=== PATIENT | female | born 1935 | race Hispanic/Latino ===

== ENCOUNTER 2016-12-16 20:07 | Inpatient (IN) | payer MEDICARE ==
[~2016-12-16] VITALS: Ht 144.8 cm; Wt 70.2 kg
[~2016-12-16 20:07] MED LIST: INSU100C6 SQ; INSU100I SQ; LIP40 PO; LISI20TA PO; METO50TA PO
[2016-12-16 20:11] VITALS: BP 212/70; PULSE 86; RESP 16; O2SAT 97
[2016-12-16 20:36] VITALS: BP 177/66; PULSE 82; RESP 20; O2SAT 98
[2016-12-16 20:44] LABS: BASOPHILS % (AUTO) 0.4 % (0-3); EOSINOPHILS % (AUTO) 0.4 % (0-5); MONOCYTES % (AUTO) 7.2 % (4-12); Mean Corpuscular Hemoglobin 28.5 pg (27.0-35.0); Mean Corpuscular Volume 84.7 fL (81-100); NEUTROPHILS % (AUTO) 77.2 % (40-74); Platelet Count 164 bil/L (150-400)
--- NOTE | 2016-12-16 20:55 | DRSVH ---
PROCEDURE: X-RAY CHEST ONE VIEW, PORTABLE ([id number]) INDICATIONS: chest pain TECHNIQUE: One view of the chest was acquired. COMPARISON: [facility], , CHEST 2VW, 05/19/2011, 11:50. FINDINGS: Surgical changes and devices: Post CABG procedure. Lungs and pleura: No pleural effusions or pneumothorax. Lungs are clear. Mediastinum: Mediastinal contours appear normal. Heart size is normal. Bones and chest wall: No suspicious bony lesions. Overlying soft tissues appear unremarkable. IMPRESSION: No acute cardiopulmonary disease process. Dictated by: Mercy Danielson MD, PhD on 12/16/2016 at 20:53 Approved by: Mercy Danielson MD, PhD on 12/16/2016 at 20:53
[2016-12-16 21:03] LABS: TROPONIN T < 0.010 ug/L (0.0-0.011)
[2016-12-16 21:13] LABS: Magnesium 1.8 mg/dL (1.6-2.6)
--- NOTE | 2016-12-16 21:16 | DRSVH ---
PROCEDURE: CT BRAIN WITHOUT CONTRAST ([id number]) INDICATIONS: facial droop on R TECHNIQUE: Noncontrast 4.5 mm thick angled axial sections acquired from the foramen magnum to the vertex, with c oronal reformats. COMPARISON: None. FINDINGS: Image quality: Excellent. CSF spaces: Basal cisterns are patent. No extra-axial fluid collections. The ventricles are symmet meliza in size and shape. Brain: No intracranial bleeds or masses. There is cerebral volume loss for age, with resultant vent ricular and sulcal prominence. There are periventricular and deep white matter chronic small vessel ischemic changes. Bilateral globus pallidus calcifications noted which are likely physiologic. There is intracranial internal carotid artery atherosclerosis. Pituitary fossa is prominent possibly due to empty sella syndrome. Skull and face: Calvarium and visualized facial bones appear intact, without suspicious lesions. Sinuses: Visualized sinuses and mastoids are clear. IMPRESSION: 1. No acute intracranial disease process. 2. 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 Recommend nonemergent MRI pituitary p rotocol Dictated by: Mercy Danielson MD, PhD on 12/16/2016 at 21:11 Approved by: Mercy Danielson MD, PhD on 12/16/2016 at 21:15
[2016-12-16 21:22] VITALS: BP 149/44; PULSE 84; RESP 16; O2SAT 96
--- NOTE | 2016-12-16 21:25 | ED.REPORT ---
HPI-Neurologic Deficit Date of Service Dec 16, 2016 ED Provider: Warner Payne MD Pt is a 81 year old female with a hx of HTN, DM, ID and bypass presenting to the ED complaining of facial numbness. Her son reports that the pt was having sharp epigastric pain with belching yesterday, and had some numbness around the left side of her mouth. She took a Nitro which relieved the pain. Today, the pain and numbness returned and is around her left eye as well. Associated symptoms include trouble swallowing onset this morning around 0900, pressure in the top of her head, and pain across her chest and shoulders. Denies hx of stroke. Denies fever, chills, SOB, wheezing, nausea, vomiting or diarrhea. Nursing Notes Stated Complaint: HARD TO SWALLOW, LF SIDE FACE NUMBNESS Chief Complaint: Neuro Symptoms/ Deficits Nursing Notes Reviewed: Yes Allergies: Coded Allergies: No Known Allergies (Verified Allergy, Unknown, 12/16/16) Scheduled Aspirin (Aspirin) 81 Mg Tablet 81 MG PO DAILY Atorvastatin-Expunged Drug, Do Not Renew! (Atorvastatin-Expunged Drug, Do Not Renew!) 40 Mg Tablet 40 MG PO HS INSULIN GLARGINE-Expunged Drug, Do Not Renew! (Lantus-Expunged Drug, Do Not Renew!) 100 Unit/1 Ml Cartridge 10 UNIT SQ AM Lisinopril (Lisinopril) 40 Mg Tablet 40 MG PO BID Metoprolol Tart-Expunged Drug, Do Not Renew! (Metoprolol Tart-Expunged Drug, Do Not Renew!) 50 Mg Tablet 50 MG PO BID Omeprazole (Omeprazole) 20 Mg Capsule. 20 MG PO QAM General Time Seen by Provider: 21:32 Chief Complaint Other (Facial numbness) Hx Obtained From: Patient, Son Arrived By: Walk-in Sudden in Onset?: No Onset Occurred: Yesterday Symptom Duration: Waxes and wanes Location: : Chest: Head Quality: Painful Severity: Current: Mild Severity: Maximum: Moderate Recent Healthcare: No recent doctor visit, No recent hospitalization Similar Sx Previous: No Past Medical History Past Medical History ID Reports: Diabetes mellitus, Hypertension Past Surgical History ID, double bypass surgery Smoking History Never Smoker Social History Alcohol Use: Denies alcohol use Drug Use: Denies drug use Ambulatory Status Independent Review of Systems Review of Systems Note: Reports trouble swallowing Constitutional: Denies: Chills, Fever Respiratory: Denies: Shortness of breath, Wheezing Cardiovascular: Reports: Chest pain GI: Denies: Diarrhea, Nausea, Vomiting Musculoskeletal: Reports: Extremity pain Neurologic: Reports: Headache, Numbness Complete sys rev & neg: except as marked. Physical Exam Initial Vital Signs Vital Signs (First) Date Time Temp Pulse Resp B/P Pulse Ox O2 Delivery O2 Flow Rate FiO2 12/16/16 20:11 37.0 86 16 212/70 97 Room Air Initial VS: Reviewed, Vital signs abnormal ENT: Mucous membranes moist, Conjunctiva normal, No scleral icterus Neck: Supple, Non-tender, Full range of motion Abdomen / GI: Soft, Non-tender, No guarding, No rebound, No distention Skin: Warm, Dry, No cyanosis Psychiatric: Mood/affect normal, Behavior normal, Normal thought content General/Constitutional: Awake, Alert, No acute distress Head / Eyes: Atraumatic, Normocephalic, PERRL, EOMI Respiratory / Chest: Breath sounds NL, Breath sounds = bilat, No respiratory distress, No rales, No rhonchi, No wheezing Cardiovascular: Heart rate NL, Regular rhythm, Heart sounds NL, Peripheral circulation NL Neurologic: Oriented X3, Speech NL, No motor deficits, No sensory deficits, CN II - XII intact, Reflexes equal bilat, Cerebellar NL Moving all 4 extremities symmetrically Lower Extremity / Pelvis / MS: Neurologic intact, Vascular intact 1+ edema left leg, no edema of right. Longstanding. Interpretation & Diagnostics Lab Results Interpretation Result Diagram: 12/16/16203912/16/162039 Test 12/16/16 00:01 12/16/16 20:36 12/16/16 20:40 Hold Purple Top Tube Received (Received) Hold Blue Top Tube Received (Received) Hold Congers Top Tube Received (Received) Hold Rodriguez Top Tube Received (Received) White Blood Count 5.6th/mm3 (3.8-10.1) Red Blood Count 4.04mil/mm3 (3.90-5.20) Hemoglobin 11.5g/dL (12.0-15.6) Hematocrit 34.2% (35.0-46.0) Mean Corpuscular Volume 84.7fL (81-100) Mean Corpuscular Hemoglobin 28.5pg (27.0-35.0) Mean Corpuscular Hemoglobin Concent 33.6% (32.0-37.0) Red Cell Distribution Width 13.6% (12.3-15.4) Platelet Count 164bil/L (150-400) Neutrophils (%) (Auto) 77.2% (40-74) Lymphocytes (%) (Auto) 14.6% (14-46) Monocytes (%) (Auto) 7.2% (4-12) Eosinophils (%) (Auto) 0.4% (0-5) Basophils (%) (Auto) 0.4% (0-3) Sodium Level 135mEq/L (134-144) Potassium Level 3.8mEq/L (3.5-5.2) Chloride Level 99mEq/L (97-108) Carbon Dioxide Level 20mmol/L (18-29) Blood Urea Nitrogen 32mg/dL (8-27) Creatinine 1.35mg/dL (0.57-1.00) Estimat Glomerular Filtration Rate 54mL/min (>59) Glucose Level 347mg/dL (60-99) Calcium Level 9.1mg/dL (8.5-10.1) Magnesium Level 1.8mg/dL (1.6-2.6) Total Bilirubin 0.7mg/dL (0.0-1.2) Aspartate Amino Transf (AST/SGOT) 24U/L (0-50) Alanine Aminotransferase (ALT/SGPT) 16U/L (0-32) Alkaline Phosphatase 153U/L (25-165) Troponin T < 0.010ug/L (0.0-0.011) Total Protein 7.0g/dL (6.4-8.4) Albumin 3.6g/dL (3.4-5.0) Lab Results Interpretation: Mild anemia, mild renal insufficiency, elevated non-fasting blood sugar ECG Interpretation ECG Interpretation: Atrial premature complex. Left atrial enlargement. Probable LVH with secondary repol abnormality. ST depression in leads 1, v5 and v6, and there is about [address] elevation in leads aVR and V1 of uncertain significance. Time: 20:26 Interpreted by: ED physician Normal ECG Interpretation: Normal rate (94), Normal sinus rhythm X-Ray Chest Interpretation Chest Xray Interpretation: IMPRESSION: No acute cardiopulmonary disease process. Dictated by: Mercy Danielson MD, PhD on 12/16/2016 at 20:53 View: Portable, 1 view Interpretation / Wet Read by: Interpret - Radiologist CT Head Interpretation IMPRESSION: 1. No acute intracranial disease process. 2. 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 Recommend nonemergent MRI pituitary protocol Dictated by: Mercy Danielson MD, PhD on 12/16/2016 at 21:11 Study: Head CT no contrast Interpretation / Wet Read by: Interpret - Radiologist Re-Eval/Medical Decision Med Decision/Clinical Course 81-year-old female with greater than 12 hours of left facial numbness and some difficulty swallowing. She presented with hypertension which partially normalized without specific treatment. Head CT scan is negative for evidence of bleeding. She does have possible empty sella syndrome, MRI recommended. She will be admitted to the hospitalist service for further evaluation. Re-Evaluation/Progress : Time of Eval: 21:38 Patient Status: Condition improved Re-Evaluation/Progress Note: Discussed plan for admission. Pt understands and agrees with plan. Consultation : Referral / Consult Name: Percy Ford MD Consulted With: Hospitalist Call Returned at: 21:47 Solar Crew Member: Will see patient, Agrees with plan, Accepts admit Counseled Regarding: Diagnosis, Lab results, Need for admission Discharge & Departure Impression: Primary Impression: Stroke CVA mechanism: unspecified Qualified Code: I63.9 - Cerebral infarction, unspecified Disposition: ADMITTED TO HOSPITAL Discharge Condition All VS Reviewed: Yes Condition: Improved Referrals: Gerardo Palacios MD (PCP) Tiburcioibmike Attestation Portions of this note were transcribed by Aury Fabian. I, Dr. Payne personally performed the history, physical exam and medical decision-making; I reviewed and confirmed the accuracy of the information in the transcribed note. Signed by: Eris Ledezma, 12/16/2016. copies to: Gerardo Palacios MD, Howard L MD Dec 16, 2016 21:25 AURY FABIAN Dec 16, 2016 21:34
[2016-12-16] MEDS ORDERED: Ondansetron 2 mg/mL 2 mL Inj IVPUSH PRN (22:30)
[2016-12-16] MEDS ORDERED: Polyethylene Glycol (PEG) 17 Gm Powder PO PRN (22:30)
[2016-12-16 22:35] VITALS: BP 161/46; PULSE 79; RESP 16; O2SAT 96
[2016-12-16 22:52] VITALS: BP 175/60; PULSE 88; RESP 18; O2SAT 97
--- NOTE | 2016-12-16 22:59 | PCM.HPMED ---
Subjective Date of Service Dec 16, 2016 Primary Provider: Admitting Physician: Percy Ford MD Primary Care Physician: Gerardo Palacios MD Attending Physician: Percy Ford MD Admit Status: From the Emergency Department Chief Complaint: Facial numbness, neck pain History of Present Illness: Ms. Desir is a 81 year old female with h/o HTN, DM on insulin, and previous ID s /p 3 vessel CABG who presented to the ED on 12/16/16 with complaints of facial numbness and neck pain. She states she has had intermittent facial numbness since her diagnosis of diabetes but this neck pain is new in onset. She describes the neck pain as an acidic heartburn in her throat with some difficulty swallowing. Patient also attests to some epigastric/substernal pain on 12/12/16 that was relieved by nitro but has now returned and is similar in nature. She denies fevers, chills, night sweats, blurry vision, SOB, nausea, vomiting, unilateral weakness or slurring speech. Review of Systems: Comprehensive ROS was done and otherwise negative except as noted above Allergies Coded Allergies: No Known Allergies (Verified Allergy, Unknown, 12/16/16) Home Medications Aspirin 81mg PO daily Omeprazole 20mg PO daily Atorvastatin 40 Mg Tablet 40 MG PO HS INSULIN GLARGINE 100 Unit/1 Ml Cartridge 10 UNIT SQ AM Insulin ASPART 3 Ml Syringe 5 U SQ TIDWM Lisinopril 20 Mg Tablet 20 MG PO HS Metoprolol Tartrate 50 Mg Tablet 50 MG PO BID PMH Diabetes mellitus Type 2, insulin using Hypertension CAD GERD Surgical History 3 Vessel CABG 2011 Family History non-contributory Social History Hx Alcohol Use: No Hx Substance Use: No Hx Tobacco Use: No Smoking Status: Never Smoker Living Arrangement: with Family Exam Vital Signs Vital Sign - Last Date Time Temp Pulse Resp B/P Pulse Ox O2 Delivery O2 Flow Rate FiO2 12/16/16 22:35 79 16 161/46 96 Room Air 12/16/16 20:11 37.0 Exam General: Well-appearing female who appears stated age, in no acute distress HEENT: NCAT, PERRLA, EOMI. Moist mucus membranes. Anicteric sclera. Neck: Supple, no JVD or thyromegaly. CV: RRR, normal S1+S2. No murmurs rubs or gallops appreciated. Pulmonary: Lungs clear to auscultation bilaterally no wheezes/rales/rhonchi Abd: Soft, nontender, nondistended. Bowel sounds throughout. No guarding/ rebound. Extremities: Varicosities with mild edema of the left lower extremity. No cyanosis or clubbing. Neuro: Alert and oriented x3. CN II-XII grossly intact. 5/5 UE & LE muscle strength. No focal deficits. Psych: Normal mood + affect Lab and Diagnostics Result Diagram: 12/16/16203912/16/162039 12-lead ECG ED read of EKG: Atrial premature complex. Left atrial enlargement. Probable LVH with secondary repol abnormality. ST depression in leads 1, v5 and v6, and there is about [address] elevation in leads aVR and V1 of uncertain significance. Cardiac Echo Impressions Echocardiogram May 2016 Left ventricular wall thickness is mildly increased. Left ventricular systolic function is normal without focal wall motion abnormalities. Ejection fraction is estimated to be 60-65%. Assessment diastolic parameters indicates a relaxation abnormality of the left ventricle, consistent with normal filling pressures. The right ventricle is normal in size and function. The left atrium is moderately dilated. Right atrium is normal in size. There is mild mitral regurgitation. There is no significant valvular heart disease. The aortic root is normal in size. No significant changes from August 2012. Assessment & Plan Ms. Desir is a 81 year old female with h/o HTN, DM on insulin, and previous ID s /p 3 vessel CABG who presented to the ED on 12/16/16 complaints of facial numbness and neck pain admitted for observation and stroke protocol. Possible TIA, present on admission. Acute. Ongoing. - Pt reported worsening symptoms that are now resolving - Noncon CT negative for acute processes but recommended MRI pituitary protocol for empty sella evaluation. - Symptoms have resolved but ABCD2 score reveals moderate risk for stroke - MRI stroke protocol ordered - Recent Echo 05/2016 as above - ST eval ordered - Monitor on telemetry - Continue Atorvastatin 40mg at night - Continue Aspirin 81mg daily Abnormal EKG, present on admission. Acute. Ongoing. - Compared to past EKG, EKG done in ER showed slight elevation of ST segments in aVR and V1 - Possibility of abnormal ACS presentation (diabetic, female) - Repeat EKG - Initial troponin negative, repeat x2 - Consider Cardiology consult (outpatient jewel bearing turner is Dr. Garza), however stress test and echo in 05/2016 were evaluated as low risk Hypertension, present on admission. Chronic. - Patient's blood pressure was over 200 systolic on admission, has since decreased - Hold home lisinopril 20 mg at night, metoprolol tartrate 50 mg twice a day for permissive hypertension - Consider restarting above meds after 24 hours Diabetes mellitus type II insulin using, present on admission. Chronic. - Glucose in the ER was 347 - A1c ordered - Continue glargine 10 units SQ AM - Low dose correctional scale ordered Hyperlipidemia, present on admission. Chronic. - Lipid panel ordered - Continue atorvastatin 40 mg at night GERD, present on admission. Chronic. - Continue Omeprazole 20mg daily Acetaminophen as needed for mild pain, headache, fever. Bowel regimen as needed. Zofran for nausea as needed. Subcutaneous heparin on board. SCDs in place. Patient Status: Patient was admitted for observation as likely length of stay < 2 midnights for severity of presenting symptoms, medical work up, and overall treatment plan. VTE Prophylaxis: Sub-Q Heparin (Unfractionated) VTE Mechanical Devices: Intermittant Pneumatic CD Resuscitation Status: CPR: Attempt Resuscitation Attending Statement The patient was seen and examined together with Dr. Elliott on 12/16 and I agree with the history, exam and plan as outlined in the note above. copies to: Gerardo Palacios MD, Jeffery S DO Dec 16, 2016 22:59 Percy Ford MD Dec 17, 2016 00:49
[2016-12-16] MEDS ORDERED: OMEP20CA11 PO (23:49)
[2016-12-16] MEDS ORDERED: ASPI-973 PO (23:49)
[2016-12-16] MEDS ORDERED: LISI40TA PO (23:49)
[2016-12-17] VITALS (7 sets, daily range): BP systolic 160–201; BP diastolic 65–78; PULSE 66–92; RESP 16–20; O2SAT 97–98
[2016-12-17] MEDS ORDERED: Glucose 40% Oral Gel 15 Gm Tube PO PRN
--- NOTE | 2016-12-17 00:53 | NUR ---
Admit Pt arrived on the floor. Denies chest pain, sob, n/v. Reports of having acid reflux. Will administer Maalox. Neuro vs noted no deficits. Alert and oriented, no facial droop or tongue deviation. No slurring of speech observed. Bilateral equal manager china, and lower extremities appropriate for age. JIN. Swallow screen done, and pt has been put on Pureed Honey Thick diet until evaluated by speech therapy. CVA Booklet provided, explained s/sx of stroke and when to call 911. Continuing to monitor.
[2016-12-17] MEDS: Insulin LISPRO 300 Unit/3 mL Inj SUBQ SCH ×5 (01:28→21:26)
[2016-12-17] MEDS: Alum-Mag Hydrox-Simeth 30 mL Suspension PO PRN ×2 (01:30→08:26)
[2016-12-17] MEDS: Pantoprazole 40 mg ER24 Tablet PO SCH (06:20)
[2016-12-17 06:31] LABS: BASOPHILS % (AUTO) 0.2 % (0-3); EOSINOPHILS % (AUTO) 1.1 % (0-5); MONOCYTES % (AUTO) 9.4 % (4-12); Mean Corpuscular Hemoglobin 28.4 pg (27.0-35.0); Mean Corpuscular Volume 84.8 fL (81-100); NEUTROPHILS % (AUTO) 72.7 % (40-74); Platelet Count 132 bil/L (150-400)
[2016-12-17] MEDS: Insulin GLARgine 100 Unit/mL Syringe SUBQ SCH (08:28)
--- NOTE | 2016-12-17 09:42 | NUR ---
Case Management: CONTEH explained and given to pt and daughter. Inés TOLEDO RN
--- NOTE | 2016-12-17 09:58 | NUR ---
Social Work: Initial Assessment Data: See initial assessment. Patient is a 81 year old female who was admitted on 12/16/16 for stroke & hypertension per H&P. Patient's insurance is Medicare. PCP is Dr. Gerardo Palacios. SW met with patient to discuss discharge planning. SW role explained. Patient is alert & oriented. EMR reviewed. Information was obtained from daughter Diane who was at bedside. Patient resides with her nalmcu-hl-dck Mariza in a 2 story home with 5 steps at entrance. Patient only uses the 1st floor of home and bathroom, kitchen, & bedroom are located there. Patient is I with ADLs but has DME available in home if needed. Diane denies patient having a DPOA but states that patient has completed AD. Patient does not have any terminologist insurance or VA benefits. Patient has not received any home health services in the past. Patient has received inpatient rehab in [place] but patient and daughter where unable to remember the name of facility. Upon discharge, transportation will be provided by family. SW provided a discharge planning checklist booklet to patient and encouraged to call with any questions. Phone number provided. SW will continue to follow. Assessment: Home likely with no needs. Plan: Pt to likely discharge home when medically stable. No needs anticipated at this time. SW will continue to follow for needs. ANGEL Ware Addendum: 12/17/16 at 1012 by CHITRA BRAVO SS Amended: Links added.
[2016-12-17] MEDS ORDERED: Diphen-Lido-Mylanta 1:1:1 Susp 15 mL Syringe PO PRN (10:30)
[2016-12-17] MEDS ORDERED: Lisinopril 40 Tablet PO SCH (10:30)
--- NOTE | 2016-12-17 12:02 | NUR ---
Evaluation completed. Please go to "Notes" then click on "Assessments and Notes" (bottom left corner of screen). Then select appropriate discipline tab on top of screen.
--- NOTE | 2016-12-17 15:46 | NUR ---
Evaluation completed. Please go to "Notes" then click on "Assessments and Notes" (bottom left corner of screen). Then select appropriate discipline tab on top of screen.
--- NOTE | 2016-12-17 16:21 | DRSVH ---
PROCEDURE: MRI BRAIN WITHOUT CONTRAST ([id number]) INDICATIONS: FACIAL NUMBNESS TECHNIQUE: Non-contrast axial T1 spin echo, axial T2 fast spin echo, sagittal and axial FLAIR, coronal T2 fast s pin echo, axial gradient echo, axial diffusion and ADC through the brain. COMPARISON: [facility], CT, CT BRAIN WO CON, 12/16/2016, 20:43. FINDINGS: Image quality: Excellent. CSF spaces: Ventricles appear symmetric in size and shape. Basal cisterns are patent. No extra-axi al fluid collections. Brain: No intracranial bleeds or mass effects. There is mild cerebral volume loss for age. There a re moderate periventricular and deep white matter chronic small vessel ischemic changes. Brainstem a ppears normal. Diffusion-weighted images show no acute ischemic insults. No chronic ischemic insult s. Note is made of empty sella. Bilateral dystrophic calcification in globus pallidus. Normal intrav ascular flow voids are present. Skull and face: Calvarial bone marrow is normal in signal. Orbits are normal. Sinuses: Sinuses and mastoids are clear. IMPRESSION: 1. No acute intracranial abnormalities. 2. Cerebral volume loss and chronic microvascular ischemic changes. Dictated by: Areli Rubalcava M.D. on 12/17/2016 at 16:15 Approved by: Areli Rubalcava M.D. on 12/17/2016 at 16:20
--- NOTE | 2016-12-17 16:28 | DRSVH ---
PROCEDURE: MRA ANGIOGRAM HEAD WITHOUT CONTRAST ([id number]) INDICATIONS: FACIAL NUMBNESS TECHNIQUE: Noncontrast axial 3-D [id number] MR angiogram, with 3-dimensional maximum intensity projection (M IP) reformats of the internal carotid arteries and posterior circulation then performed. COMPARISON: [facility], MR, MR BRAIN WO CON, 12/17/2016, 15:34. FINDINGS: Image quality: Excellent. Anterior circulation: Intracranial internal carotid arteries are patent. There is severe narrowing i n the cavernous segment of the internal carotid arteries bilaterally (>90%). The flow within the price red anterior cerebral arteries is normal and symmetric. The flow within the middle cerebral arteries is normal and symmetric. The anterior communicating artery is seen. No stenoses, occlusions, or an eurysms. Posterior circulation: The left vertebral artery is dominant. The right vertebral artery is small, wh ich is most likely congenital. There is diffuse irregularity with mild stenosis in left vertebral art yeimi (~30%). Normal appearing basilar artery. The flow within the posterior cerebral arteries is norm al and symmetric. No stenoses, occlusions, or aneurysms. IMPRESSION: 1. 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 2. Dominant left vertebral artery with mild stenosis. 3. 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 Dictated by: Areli Rubalcava M.D. on 12/17/2016 at 16:20 Approved by: Areli Rubalcava M.D. on 12/17/2016 at 16:27
[2016-12-17] MEDS ORDERED: Heparin 25K Unit/500mL 0.45 NS 25,000 UNIT in IV Premix 1 EACH IV ONE (17:35)
[2016-12-17] MEDS ORDERED: Heparin 5,000 Unit/mL Inj IVPUSH ONE (17:35)
--- NOTE | 2016-12-17 18:10 | NUR ---
cardiac heparin drip Cardiac heparin drip started at 800un 16ml/hr with 4500 bolus per MD order. Double verified by Herminia Patrick
--- NOTE | 2016-12-17 18:11 | NUR ---
Tooth pain pt c/o 10/03 left tooth pain that was unrelieved by tylenol. MD notified. Magic mouth wash administered and ABX for tooth infection. Pt stated that pain decreased to 10
--- NOTE | 2016-12-17 19:13 | PCM.PNMED ---
Subjective Date of Service Dec 17, 2016 Subjective Patient was seen and examined at bedside today. Patient denies any chest pain, shortness of breath, nausea, vomiting, diarrhea. Patient only complains of tooth pain. Later in the afternoon it was noted that the patient's troponins continued to increase and an EKG was done and showed that the patient was having an acute ischemic event in the anterolateral leads. Patient throughout this entire time still denied any chest pain shortness of breath, nausea, vomiting, diarrhea. Overnight events: None Exam Vital Signs Vital Sign - Last Date Time Temp Pulse Resp B/P Pulse Ox O2 Delivery O2 Flow Rate FiO2 12/17/16 16:29 36.4 66 160/70 98 Room Air 12/17/16 10:14 20 Exam Physical Exam: GEN: Patient was awake, alert, responding appropriately to questions HEENT: Pupils equal round and reactive to light, extraocular eye muscles intact , Neck soft supple, trachea midline, nomocephalic/atraumatic, poor dentition left anterior molar black, right multiple molars with black spots CV: +S1/S2, regular rate and rhythm, no murmurs auscultated Respiratory: CTAB, no wheezes, rales, rhonchi GI: +bowel sounds x4, soft, compressible, nontender to palpation EXT: no clubbing, cyanosis, edema Neuro: Cranial nerves II-XII grossly intact Psych: mood and affect were appropriate IVs and Medications Medications Reviewed: Medications were reviewed in detail Lab and Diagnostics Result Diagram: 12/17/16 0530 12/17/16 0530 12-lead ECG ED read of EKG: Atrial premature complex. Left atrial enlargement. Probable LVH with secondary repol abnormality. ST depression in leads 1, v5 and v6, and there is about [address] elevation in leads aVR and V1 of uncertain significance. Cardiac Echo Impressions Echocardiogram May 2016 Left ventricular wall thickness is mildly increased. Left ventricular systolic function is normal without focal wall motion abnormalities. Ejection fraction is estimated to be 60-65%. Assessment diastolic parameters indicates a relaxation abnormality of the left ventricle, consistent with normal filling pressures. The right ventricle is normal in size and function. The left atrium is moderately dilated. Right atrium is normal in size. There is mild mitral regurgitation. There is no significant valvular heart disease. The aortic root is normal in size. No significant changes from August 2012. Assessment & Plan Ms. Desir is a 81 year old female with h/o HTN, DM on insulin, and previous [place] s /p 3 vessel CABG who presented to the ED on 12/16/16 complaints of facial numbness and neck pain admitted for observation and stroke protocol. NSTEMI, potentially present on admission, active -Repeat EKG shows ischemic changes in the anterolateral leads with inverted T waves -Heparin drip started -Positive troponins 2 -Repeat echo -Nothing by mouth after midnight for cath tomorrow -Cardiology consulted (Dr. Mancuso) Tooth decay, present on admission, active -Start Clindamycin 4 times a day -Florastor twice a day -Magic mouthwash when necessary pain Possible TIA, present on admission. Acute. Ongoing. - Pt reported worsening symptoms that are now resolving - Noncon CT negative for acute processes but recommended MRI pituitary protocol for empty sella evaluation. - Symptoms have resolved but ABCD2 score reveals moderate risk for stroke - MRI stroke protocol ordered - Recent Echo 05/2016 as above - ST eval ordered - Monitor on telemetry - Continue Atorvastatin 40mg at night - Continue Aspirin 81mg daily Hypertension, present on admission. Chronic. 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 - Glucose in the ER was 347 - A1c pending - Continue glargine 10 units SQ AM - Low dose correctional scale ordered Hyperlipidemia, present on admission. Chronic. - Lipid panel shows mild hypertriglyceridemia - Continue atorvastatin 40 mg at night GERD, present on admission. Chronic. - Continue Omeprazole 20mg daily Acetaminophen as needed for mild pain, headache, fever. Bowel regimen as needed. Zofran for nausea as needed. Subcutaneous heparin on board. SCDs in place. Outpatient medical office assistant: Dr. Garza Disposition: The patient was admitted for what was presumably a TIA however after further history this seems less likely. The patient does complain of tooth decay and has stated that she has had mouth pain and has weakness and pain every time she walks in that left side. The tube was examined today and is obviously dying of this almost completely black. Upon further history the patient states that for the last day or 2 she has had some pain in her neck and bilateral shoulders which seems to have been resolving with the use of sublingual nitroglycerin. The patient states that she only used one or 2 of them but then told her daughters at one point she "just did not feel right". Patient had one troponin that was negative however the following 2 troponins were positive and a repeat EKG was done showing the patient had anterolateral ischemic changes with significant inverted T waves which was worse from the admitting EKG. Dr. Mancuso was called and ordered an echo to be done on this patient, heparin drip, and the patient to be made nothing by mouth she will take her to the film laboratory technician tomorrow morning. The patient is currently stable and in no pain. VTE Prophylaxis: Sub-Q Heparin (Unfractionated) VTE Mechanical Devices: Intermittant Pneumatic CD Resuscitation Status: CPR: Attempt Resuscitation Yesy Radford DO Dec 17, 2016 19:13
[2016-12-18] VITALS (14 sets, daily range): BP systolic 126–173; BP diastolic 49–75; PULSE 64–75; RESP 12–18; O2SAT 97–99
[2016-12-18] MEDS: Pantoprazole 40 mg ER24 Tablet PO SCH (05:28)
[2016-12-18 06:29] LABS: BASOPHILS % (AUTO) 0.5 % (0-3); EOSINOPHILS % (AUTO) 1.5 % (0-5); NEUTROPHILS % (AUTO) 63.7 % (40-74); Platelet Count 137 bil/L (150-400)
--- NOTE | 2016-12-18 06:42 | NUR ---
Activity Kept bedrest this shift with exception to getting up to BSC. Patient reports that jaw and shoulder pain are brought on with activity. No cardiac complaints noted this shift. Tele remains SR. Currently resting without any complaints.
[2016-12-18] MEDS: Insulin GLARgine 100 Unit/mL Syringe SUBQ SCH (08:11)
[2016-12-18] MEDS: Insulin LISPRO 300 Unit/3 mL Inj SUBQ SCH ×4 (08:12→21:49)
[2016-12-18] MEDS ORDERED: HYDR25TA4 PO (08:17)
[2016-12-18] MEDS ORDERED: Heparin 25K Unit/500mL 0.45 NS 25,000 UNIT in IV Premix 1 EACH IV SCH ×2 (13:10→22:00)
[2016-12-18] MEDS ORDERED: Heparin Protocol Boluses IVPUSH PRN ×2 (13:15→22:00)
--- NOTE | 2016-12-18 13:30 | NUR ---
OFF UNIT/tfr Pt left unit to shift lab technician with heparin drip running. Pt was then transferred to PCC room 2004. Shift report given to Eva Jones RN.
[2016-12-18] MEDS ORDERED: Heparin 10,000 Unit/1,000 mL NS Premix IV ONE (13:50)
[2016-12-18] MEDS ORDERED: Heparin 1,000 Units/500 mL NS Premix IV ONE (13:50)
[2016-12-18] MEDS ORDERED: Nitroglycerin 50,000 mcg/250 mL D5W Premix IV ONE (13:51)
[2016-12-18] MEDS ORDERED: Heparin 1,000 Unit/mL 10 mL Inj ONE (13:51)
[2016-12-18] MEDS ORDERED: fentaNYL-PF 50 mCg/mL 2 mL Inj ONE (14:30)
--- NOTE | 2016-12-18 17:13 | PCM.PNMED ---
Subjective Date of Service Dec 18, 2016 Subjective Denies any new issues/complaints. No chest pain/SOB Exam Vital Signs Vital Sign - Last Date Time Temp Pulse Resp B/P Pulse Ox O2 Delivery O2 Flow Rate FiO2 12/18/16 16:30 68 16 139/59 97 Room Air 12/18/16 10:19 36.6 Intake and Output 12/17/16 12/17/16 12/18/16 Cumulative From/Thru 15:00 23:00 07:00 12/16/16 20:11 - 12/17/16 22:10 Intake Total 118 ml 700 ml 818 ml Output Total 800 ml 800 ml 1600 ml Balance -682 ml -100 ml -782 ml Intake Oral 118 ml 700 ml 818 ml IV Total 0 ml 0 ml Output Urine Total 800 ml 800 ml 1600 ml # Bowel Movements 0 0 General: Alert, Cooperative, No Acute Distress Head: Normal Eyes: Scleral Anicteric Nose: Mucous Membr Moist/[place] Mouth: Mucous Membr Moist/[place] Neck: Supple Chest & Lungs: Chest Wall Normal, Clear to auscultation & percussion Cardiovascular: Regular Rate/Rhythm Abdomen: Non-tender, Non-distended, Normoactive bowel tones, Soft Extremities: No cyanosis/clubbing/edma bilat Neurological: Grossly Neurologically Intact, Normal Speech IVs and Medications Medications Reviewed: Medications were reviewed in detail Lab and Diagnostics Result Diagram: 12/18/16 0540 12/18/16 0540 12-lead ECG ED read of EKG: Atrial premature complex. Left atrial enlargement. Probable LVH with secondary repol abnormality. ST depression in leads 1, v5 and v6, and there is about [address] elevation in leads aVR and V1 of uncertain significance. Cardiac Echo Impressions Echocardiogram May 2016 Left ventricular wall thickness is mildly increased. Left ventricular systolic function is normal without focal wall motion abnormalities. Ejection fraction is estimated to be 60-65%. Assessment diastolic parameters indicates a relaxation abnormality of the left ventricle, consistent with normal filling pressures. The right ventricle is normal in size and function. The left atrium is moderately dilated. Right atrium is normal in size. There is mild mitral regurgitation. There is no significant valvular heart disease. The aortic root is normal in size. No significant changes from August 2012. Assessment & Plan 81 year old female with h/o HTN, DM on insulin, and previous [place] s/p 3 vessel CABG who presented to the ED on 12/16/16 complaints of facial numbness and neck pain admitted for observation and stroke protocol. # Acute NSTEMI, potentially present on admission, active - Repeat EKG shows ischemic changes in the anterolateral leads with inverted T waves - Heparin drip - Positive Troponin - Followup pending echo - Cardiology consulted. Will followup with recs # Tooth decay, present on admission, active - Continue Clindamycin 4 times a day - Florastor twice a day - Magic mouthwash when necessary pain - Followup as outpatient # Possible TIA, present on admission. Acute. Ongoing. - Pt reported worsening symptoms that are now resolving - Noncon CT negative for acute processes but recommended MRI pituitary protocol for empty sella evaluation. 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 Walker) who feels finding likely artifact - Further followup as outpatient # Hypertension, present on admission. Chronic. 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 - Glucose in the ER was 347 - HgA1C 9.9 - Continue glargine 10 units SQ AM - Low dose correctional scale ordered # Hyperlipidemia, present on admission. Chronic. - Lipid panel shows mild hypertriglyceridemia - Continue atorvastatin 40 mg at night # GERD, present on admission. Chronic. - Continue Omeprazole 20mg daily # CKD. - Cr seems at baseline. - Followup Dispo: 1-2 day VTE Prophylaxis: Sub-Q Heparin (Unfractionated) VTE Mechanical Devices: Intermittant Pneumatic CD Resuscitation Status: CPR: Attempt Resuscitation Josué Stark Dec 18, 2016 17:13
--- NOTE | 2016-12-18 17:33 | DRSVH ---
[facility] [address] [place] [address] Echocardiogram Report Name: ALBERTO CHANDLER SStudy Date: 12/18/2016 Height: 57 in Hospital Exam Location: [facility] Weight: 132 lb Gender: Female BSA: 1.5 m2 : 1935 Age: 81 yrs BP: 170/75 mm Hg Reason For Study: NSTEMI Ordering Physician: MD Teena Mcknight Performed By: Man Torre Referring Physician: Gustavo Cardenas Interpretation Summary 1. Normal left ventricular size with mild LVH and preserved LV systolic function with an estimated EF of 60-65% Possible mild hypokinesis of the distal anterolateral segment 2. Grossly normal right ventricular size with normal systolic function. 3. No evidence for significant valvular pathology Compared to the previous study, LV function is stable Procedure: A two-dimensional transthoracic echocardiogram with color flow and Doppler was performed. The study quality was technically adequate. Comparison is made with the echocardiogram of 06/02/16. The patient was in normal sinus rhythm during the exam. Left Ventricle: The left ventricle is normal in size. There is mild concentric left ventricular hypertrophy. The ejection fraction is estimated to be 60-65%. Septal motion is consistent with post-operative state. There is possible mild hypokinesis in the mid to distal sally-lateral segments. Assessment of diastolic parameters suggests a pseudonormalization pattern, consistent with elevated filling pressures. Right Ventricle: The right ventricle grossly appears normal in size with probable normal systolic function. Atria: There is mild biatrial enlargement. The interatrial septum is intact with no evidence for an atrial septal defect. Mitral Valve: The mitral valve leaflets are slightly calcified. There is mild mitral annular calcification. There is mild mitral regurgitation. Aortic Valve: The aortic valve is trileaflet. The aortic valve opens well. There is mild aortic valve sclerosis. There is trace aortic regurgitation. Tricuspid Valve: The tricuspid valve is normal. There is mild tricuspid regurgitation. The right ventricular systolic pressure is estimated at 25 mmHg assuming a right atrial pressure of 3 mm Hg. Pulmonic Valve: The pulmonic valve is not well visualized. There is trace pulmonic regurgitation. Great Vessels: The ascending aorta is normal in size. Pericardium/ Pleura There is no pericardial effusion. There is no pleural effusion. MMode/2D Measurements & Calculations LVIDd: 4.3 cm RA long axis LVOT diam LVIDs: 3.0 cm LA A2 area: 18.4 cm FS: 30.6 % LA A4 area: 21.0 cm RA area AoV Opening EPSS: 0.85 cm LA length (vol): 5.3 cm IVSd: 1.2 cm LA vol: 61.7 ml : 18.4 cm Ao root diam LVPWd: 1.2 cm LA vol index RA vol : 51.1 ml asc Aorta : 40.9 ml/m2 RA Diam: 3.4 cm : 33.9 mm2 LV ornelas. diameter/BSA LV sys. diameter/BSA (cm/m^2): 2.8 (cm/m^2): 2.0 Doppler Measurements & Calculations Ao V2 max: 140.5 cm/secMV E max delfin MV E/A: 1.0 TR max delfin Ao max P.9 mmHg : 104.0 cm/sec Med Peak E' Delfin : 234.0 cm/sec Ao mean P.5 mmHg MV A max delfin TR max PG LVOT Max Delfin : 102.4 cm/sec E/E' med: 29.9 : 21.9 mmHg : 74.1 cm/sec Lat Peak E' Delfin PA V2 max MARIBEL(I,D): 1.4 cm : 72.7 cm/sec sev ratio: 0.55 E/E' lat: 15.9 PA mean PG E/e' average : 1.3 mmHg MV dec time: 0.21 sec Ao V2 mean LV V1 max PG PA V2 mean : 102.4 cm/sec : 53.7 cm/sec Ao V2 VTI: 37.6 cmLV V1 VTI PA pr(Accel) MARIBEL(V,D): 1.4 cm2 : 20.5 cm : 33.8 mmHg MARIBEL indexed to BSA (cm^2/m^2): 0.94 Reading Physician:05:32 PM
--- NOTE | 2016-12-18 18:15 | CONS ---
[address] [address] CONSULTATION REPORT PATIENT: ALBERTO CHANDLER : 1935 MR#: [id number] ADMIT: 12/16/2016 JOB ID: [id number] DATE OF SERVICE: 12/18/2016 CHIEF COMPLAINT: I was asked by the hospital team to consult on this patient given elevated troponin. HISTORY OF PRESENT ILLNESS: The patient is a 81-year-old woman who has a history of coronary disease with catheterization in 2010 revealing multivessel disease. She had bypass surgery which is reported as a PRO to the left anterior descending artery, as well as a saphenous vein graft sequentially between the PDA and the left ventricular extension branch of the circumflex. Apparently the surgery went well. The patient has established care with Dr. Garza and complained of some chest pain and neck discomfort when bending over. Also complained of some shortness of breath, mostly with bending over. In speaking with her she says she has been having some chronic chest discomfort for quite some time now, but with this recent admission she came in with neck pain as well as numbness of her face. There was concern for stroke and thus far workup has not revealed any evidence for acute stroke. She does have some abnormalities of her intracranial circulation however. She also has a bad tooth and they were feeling that the bad tooth was contributing to some of her symptoms. In speaking with her, she says that she gets both some chest discomfort as well as neck discomfort and tooth discomfort. This does seem to worsen with exertion, which she also says the tooth discomfort gets worse when she bends forward. She denies orthopnea, PND, lower extremity edema, palpitations, presyncope, syncope. She has mildly elevated troponins. PAST MEDICAL/PROBLEM LIST: 1. History of coronary disease with bypass surgery in 2010. 2. History of renal insufficiency. 3. Hypertension. MEDICATIONS: At the time of admission include amlodipine 2.5 daily, aspirin 81 mg a day, Atacand/HCT 16/12.5 daily, atorvastatin 40 mg q.h.s., furosemide 40 mg, glipizide 5 mg, Imdur 20 mg tablets, lisinopril, lovastatin, metoprolol, as well as NovoLog insulin. ALLERGIES: INCLUDE MAGY INHIBITORS, HYDROCHLOROTHIAZIDE, TRIAMTERENE. SOCIAL HISTORY: Never smoker. No alcohol use. FAMILY HISTORY: No early coronary disease. REVIEW OF SYSTEMS: Overall health: No effusions, night sweats, or weight loss. GI: No problems with ulcers or blood in the stool. : No dysuria or hematuria. Pulmonary: No known lung disease. HEENT: Tooth pain. Cardiac: As per HPI. Musculoskeletal: No acute issues. Neuro: No chronic headaches. Endocrine: N No heat or cold intolerance. Heme: No easy bruising or bleeding. Ophtho: No acute vision changes. Psych: No acute issues. All other review of systems on a 12-point review of systems is negative. PHYSICAL EXAMINATION: Blood pressure 166/73, afebrile, sats 98% on room air. General: In no acute distress. Speaking in full sentences, without apparent shortness of breath. Head and neck exam: Normocephalic, atraumatic. Neck: No obvious JV distention. Heart: Regular rate and rhythm. I do not appreciate murmurs, gallops, or rubs. Lungs: Sound clear. Back: No tenderness to palpation. Abdomen: Soft. Extremities: Warm. No appreciable edema. Somewhat faint distal pulses. Carotids without bruits appreciated. Skin without breakdown appreciated. Neuro: Alert and interactive. Gait is not tested. Psych: Appropriate mood and affect. ENT: Hearing grossly intact. Mucous membranes moist. Ophtho: Vision grossly intact. LABORATORIES: Show a white count 4.1, H and H 9 and 30, platelets 137,000, which is which is stable but showing a decreased from initial platelet count on December 16. Chemistry shows a sodium 138, potassium 4.2. Chloride and bicarb of 102 and 22, respectively. BUN and creatinine 34 and 1.31. Glucose 165. LFTs within normal limits. Troponin was 0.06, up to 0.086, down to 0.048. TSH and free T4 within normal limits. IMAGING: The MRI shows high-grade stenoses in the cavernous segment of the internal carotid arteries bilaterally. Dominant left vertebral artery with mild stenosis. Other imaging did not document any acute stroke. Echocardiogram shows overall preserved LV systolic function. CURRENT MEDICATIONS: Include insulin, clindamycin 300 mg q.i.d. for her tooth, lisinopril 40 b.i.d., amlodipine 10 mg daily, metoprolol 50 b.i.d., aspirin 81 mg a day, glargine insulin, atorvastatin 40 q.h.s., as well as heparin drip. STUDIES: EKG back when she was initially seen by Dr. Garza had some subtle ST changes in the lateral leads V4 and V5. Her current EKG shows T-wave changes in the anterolateral leads. IMPRESSION: The patient came in with symptoms of neck pain and facial numbness which she says has persisted. She has a sore tooth. She also describes some chest discomfort as well as tooth discomfort that worsened with exertion. In fact, it does worsen with bending over as well. EKG is abnormal. Troponins are mildly elevated. PLAN: I have discussed with the family that this could be related to coronary disease, although she did have bypass grafting in 2010 and those should be in good shape. Given her EKG findings as well as her symptoms, I think it would be prudent to rule out coronary artery disease as the cause of her current symptoms. After speaking at length with the family they agreed to proceed. I spent 40 minutes reviewing the patient's records, her cath films, her surgical reports, and speaking with the family, as well as speaking with the hospitalist. CHANI
[2016-12-18] MEDS ORDERED: Sodium Chloride LOK Flush 10 mL Syringe IVFLUSH PRN (18:40)
[2016-12-18] MEDS ORDERED: Atropine 1 mg/10 mL (Code) Syringe IVPUSH PRN (18:40)
[2016-12-18] MEDS ORDERED: 0.9% Sodium Chloride 600 ML IV ONE (18:40)
[2016-12-18] MEDS ORDERED: Ondansetron 2 mg/mL 2 mL Inj IVPUSH PRN (18:40)
[2016-12-18] MEDS ORDERED: 0.9% Sodium Chloride 250 ML BOLUS IV PRN (18:40)
--- NOTE | 2016-12-18 19:22 | CS94 ---
[address] [address] DIAGNOSTIC CARDIAC CATHETERIZATION PATIENT: ALBERTO CHANDLER : 1935 MR#: [id number] ADMIT: 12/16/2016 JOB ID: [id number] SERVICE DATE: 12/18/2016 PROCEDURES PERFORMED: 1. Left heart catheterization 2. [place] coronary angiography 3. Graft angiography. INDICATIONS: A patient with exertional symptoms and known coronary disease, mildly elevated troponin, abnormal EKG. She presents for further assessment by cardiac catheterization. DESCRIPTION OF PROCEDURE: Informed consent was obtained. The patient was brought to the cath laboratory. A health advisor was present during the case. The area over the right femoral artery was anesthetized with lidocaine and, using modified Seldinger technique and a micropuncture kit, access was obtained and a 5-Bruneian sheath was advanced. A 5-Bruneian JL4 catheter was advanced over a wire and used to cannulate the left coronary artery and angiographic views obtained. This catheter was removed and a 5-Bruneian JR4 catheter was advanced over a wire and used to cannulate the graft to the PDA and the distal circ, as well as the comanche right coronary artery. A JR4 catheter was then brought up into the arch and used to enter the left subclavian artery as an exchange length wire was used and the JR4 was exchanged out for a 5-Bruneian TEN catheter. Angiographic views of the PRO were obtained. The right coronary catheter did enter the left ventricle under fluoroscopic guidance, therefore left ventricular pressures could be obtained, and following pullback aortic pressure readings were obtained. The case was ended. Hemostasis was achieved via manual compression. No complications. FINDINGS: CORONARIES: 1. Left main: This has no significant plaquing. 2. Circumflex artery: This vessel has serial stenoses estimated in the range of at least 50% to 60%. The vessel is open, however, giving rise to a terminal obtuse marginal branch. 3. LAD: In the left anterior descending artery there is a proximal stenosis estimated in the range of at least 40%. The midvessel has a high-grade stenosis which occurs at the takeoff of the principal diagonal branch. There is JUAN 2-3 flow in this vessel. The apical left anterior descending artery is occluded. 3. Right coronary artery: This is occluded. Saphenous vein graft to PDA supplies the distal distribution. SVG to PDA and distal circumflex: This is widely patent. It is patulous and there is no evidence for pre or post anastomotic stenoses. PRO to LAD: does not appear to attach to the left anterior descending artery. It continues down to the chest wall. IMPRESSION: The patient has rather complex coronary disease with what appears to be now no evidence for a patent PRO to LAD. She has a high-grade stenosis in the LAD which does involve the principal diagonal as well. She has serial stenoses in the circumflex that do not appear critical. Her one graft is widely patent. PLAN: Given concerns about renal insufficiency, will stop for now and plan for a staged intervention. Given her EKG changes anteriorly would suspect that the LAD and the associated diagonal may be the problem. Because of the complexity of the case with renal insufficiency will plan for a staged procedure. I will also discuss the complexity of this with the patient and her family (with an eyeglass fitter present). CHANI
[2016-12-19] VITALS (10 sets, daily range): BP systolic 145–160; BP diastolic 52–71; PULSE 61–76; RESP 16–22; O2SAT 95–98
[2016-12-19 02:51] LABS: Mean Corpuscular Hemoglobin 28.1 pg (27.0-35.0); Mean Corpuscular Volume 85.7 fL (81-100)
[2016-12-19 03:18] LABS: Magnesium 2.1 mg/dL (1.6-2.6)
--- NOTE | 2016-12-19 06:28 | NUR ---
Hematoma/Pedal pulses Upon shift change as R groin site was inspected with prev. RN, an about 10cm long hematoma was noted around R groin access site. Femstop was applied at 30, no pulse was palpable or found with Doppler at R dorsalis pedis or post. tibial. Network Engineering Advisor was called and updated. Femstop was adjusted according to head of mathematics order and then taken off and eventually pedal pulse was found with Doppler. Pt was maintained on BR for remainder of night but pt was unable to empty bladder via bedpan. Hospitalist was called and order for Sahni was obtained and inserted for overnight use while pt on BR. Bruising formed around incision site but hematoma remained within marked margins. Pt denies any pain all shift.
[2016-12-19] MEDS: Pantoprazole 40 mg ER24 Tablet PO SCH (07:21)
[2016-12-19] MEDS: Insulin LISPRO 300 Unit/3 mL Inj SUBQ SCH ×4 (08:00→21:19)
[2016-12-19] MEDS: Insulin GLARgine 100 Unit/mL Syringe SUBQ SCH (08:34)
--- NOTE | 2016-12-19 08:49 | PCM.PNMED ---
Subjective Date of Service Dec 19, 2016 Subjective Today, patient states that she feels well overall. She reports that the numbness on the left side of her face has improved and that she is currently experiencing any neck pain. She notes that her teeth only hurts when she bends down or does any strenuous activities. Overnight, Per nursing, a 10cm long hematoma was noted around R groin access site. On Review of systems, patient denies headaches, fevers, chills, chest pain, shortness of breath, nausea, vomiting, abdominal pain, bowel changes, dysuria. Exam Vital Signs Vital Sign - Last Date Time Temp Pulse Resp B/P Pulse Ox O2 Delivery O2 Flow Rate FiO2 12/19/16 05:54 61 12/19/16 03:59 36.5 16 146/69 96 Room Air Intake and Output 12/18/16 12/18/16 12/19/16 Cumulative From/Thru 15:00 23:00 07:00 12/16/16 20:11 - 12/19/16 06:32 Intake Total 200 ml 0 ml 571 ml 1589 ml Output Total 750 ml 600 ml 950 ml 3900 ml Balance -550 ml -600 ml -379 ml -2311 ml Intake Oral 200 ml 0 ml 250 ml 1268 ml IV Total 321 ml 321 ml Output Urine Total 750 ml 600 ml 950 ml 3900 ml # Bowel Movements 2 2 Exam General: Patient is lying comfortably on bed, AAOX3, not in acute distress, cooperative and pleasant. HEENT: head normocephalic and atraumatic, PERRLA, EOMI, no scleral icterus, noninjected conjunctiva Neck: neck supple, non-tender, no lymphadenopathy, trachea midline, no JVD CV: regular rate and rhythm, s1 and s2 heard, no murmur, radial pulses only heard by doppler, no rubs murmurs or gallops, no edema Lungs: Clear to auscultation bilaterally, no wheezes, rales or rhonchi, no increased work of breathing Abdomen: normoactive bowel sounds on 4Q, soft, non-distended, non-tender to palpation, no organomegally, Skin: warm and dry Musculoskeletal: equal UE and LE strength bilaterally, full ROM bilaterally Extremities: Slightly tender to palpation of left foot, which she states is her baseline Neuro: Grossly neurologically intact, cranial nerves II through XII intact Psych: Normal mood and affect Lab and Diagnostics Result Diagram: 12/19/1622712/19/16227 X-Rays, CTs and MRIs PROCEDURE: MRA ANGIOGRAM HEAD WITHOUT CONTRAST ([id number]) INDICATIONS: FACIAL NUMBNESS IMPRESSION: 1. 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 2. Dominant left vertebral artery with mild stenosis. 3. 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 Dictated by: Areli Rubalcava M.D. on 12/17/2016 at 16:20 Approved by: Areli Rubalcava M.D. on 12/17/2016 at 16:27 PROCEDURE: MRI BRAIN WITHOUT CONTRAST ([id number]) INDICATIONS: FACIAL NUMBNESS IMPRESSION: 1. No acute intracranial abnormalities. 2. Cerebral volume loss and chronic microvascular ischemic changes. PROCEDURE: CT BRAIN WITHOUT CONTRAST ([id number]) INDICATIONS: facial droop on R IMPRESSION: 1. No acute intracranial disease process. 2. 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 Recommend nonemergent MRI pituitary protocol Chest X ray IMPRESSION: No acute cardiopulmonary disease process. Dictated by: Mercy Danielson MD, PhD on 12/16/2016 at 20:53 Approved by: Mercy Danielson MD, PhD on 12/16/2016 at 20:53 12-lead ECG ED read of EKG: Atrial premature complex. Left atrial enlargement. Probable LVH with secondary repol abnormality. ST depression in leads 1, v5 and v6, and there is about [address] elevation in leads aVR and V1 of uncertain significance. Cardiac Echo Impressions Echocardiogram May 2016 Left ventricular wall thickness is mildly increased. Left ventricular systolic function is normal without focal wall motion abnormalities. Ejection fraction is estimated to be 60-65%. Assessment diastolic parameters indicates a relaxation abnormality of the left ventricle, consistent with normal filling pressures. The right ventricle is normal in size and function. The left atrium is moderately dilated. Right atrium is normal in size. There is mild mitral regurgitation. There is no significant valvular heart disease. The aortic root is normal in size. No significant changes from August 2012. November 2016 Interpretation Summary 1. Normal left ventricular size with mild LVH and preserved LV systolic function with an estimated EF of 60-65% Possible mild hypokinesis of the distal anterolateral segment 2. Grossly normal right ventricular size with normal systolic function. 3. No evidence for significant valvular pathology Compared to the previous study, LV function is stable Assessment & Plan 81 year old female with h/o HTN, DM on insulin, and previous ND s/p 3 vessel CABG who presented to the ED on 12/16/16 complaints of facial numbness and neck pain who was initially admitted for observation and stroke protocol. # Acute NSTEMI, potentially present on admission, active - Repeat EKG shows ischemic changes in the anterolateral leads with inverted T waves - No longer on a Heparin drip - Positive Troponin but has trended down today - ECHO shows Normal left ventricular size with mild LVH and preserved LV systolic function with an estimated EF of 60-65%. Compared to the previous study, LV function is stable - Cardiology consulted. We appreciate their recommendations -Cardiac catheterization was performed on 12/18/2016 and showed that the patient has a high-grade LAD stenosis -She is on the catheterization schedule for Wednesday. # Tooth decay, present on admission, active - Continue Clindamycin 4 times a day - Florastor twice a day - Magic mouthwash when necessary pain - Followup as outpatient # Possible TIA, present on admission. Acute. resolved. - Pt no longer reports any symptoms of numbness on her left face - Noncon CT negative for acute processes but recommended MRI pituitary protocol for empty sella evaluation. 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 Walker) who feels finding likely artifact - Further followup as outpatient # Hypertension, present on admission. Chronic. - Patient's blood pressure was over 200 systolic on admission, has since decreased - Continue home lisinopril 20 mg at night, metoprolol tartrate 50 mg twice a day -If blood pressure is high, we can increase the metoprolol titrate to 100 mg twice a day; however, must monitor her pulse because it is on the low side # Diabetes mellitus type II insulin using, present on admission. Chronic. - Glucose in the ER was 347 - HgA1C 9.9 - Continue glargine 10 units SQ AM - Low dose correctional scale ordered # Hyperlipidemia, present on admission. Chronic. - Lipid panel shows mild hypertriglyceridemia - Continue atorvastatin 40 mg at night # GERD, present on admission. Chronic. - Continue Omeprazole 20mg daily # CKD. - Cr seems at baseline. - Followup Dispo: 1-2 day Pain Evaluation: Adequate Pain Control VTE Prophylaxis: Sub-Q Heparin (Unfractionated) VTE Mechanical Devices: Intermittant Pneumatic CD Resuscitation Status: CPR: Attempt Resuscitation Time spent 25 minutes Attending Statement I have seen and evaluated patient at bedside in addition to directly supervising care provided by resident physician Dr Lama for care provided on 12/19/2016. I agree with above documentation Fozia Lama DO Dec 19, 2016 07:46 Candelario Manzanares DO Dec 20, 2016 07:45
--- NOTE | 2016-12-19 11:22 | PROG NOTE ---
[address] [address] PROGRESS NOTE PATIENT: ALBERTO CHANDLER : 1935 MR#: [id number] ADMIT: 12/16/2016 JOB ID: [id number] DATE: 12/19/2016 CHIEF COMPLAINT: The patient came in with a mix of symptoms including left facial numbness, tooth pain, chest discomfort, neck pain. She has been put on clindamycin for a bad tooth. She tells me that there is only mild residual numbness of her face near her eye. She denies chest pressure, chest tightness, palpitations. She had cardiac catheterization yesterday that revealed a PRO that is no longer going to the LAD. The distally LAD is occluded. High-grade stenosis is appreciated in the mid vessel, which does involve the diagonal. Based upon her symptoms and EKG this is felt to be the culprit lesion. Given the anticipated complexity of the lesion, as well as renal insufficiency and a desire to not use significant amounts of contrast, the patient was taken off the quality lab technician table. As noted, she is doing well. Overnight there was concern about a right groin site possible hematoma, although today I do not appreciate any hematoma, just bruising. PHYSICAL EXAMINATION: Blood pressure 160/61, heart rate 69. She is afebrile. Sats are 98% on room air. General: In no acute distress. Speaking in full sentences without apparent shortness of breath. Head and neck: Normocephalic, atraumatic. Neck: No obvious JV distention. Heart: Regular rate and rhythm. Somewhat distant sounds. No murmurs appreciated. Lungs sound clear. Back: No CVA tenderness to palpation. Abdomen: Soft, nontender. Groin site with bruising but no palpable hematoma. No bruits appreciated. A distal DP pulse is appreciated. Distal extremities are warm. CURRENT MEDICATIONS: Include insulin, Plavix 75 a day, aspirin 81 mg a day, amlodipine 10 daily, metoprolol 50 b.i.d., lisinopril 40 b.i.d. She is also on clindamycin, atorvastatin 40 mg q.h.s., and lispro insulin. The med list suggests she is still on heparin, which was okay. We were going to start this without a bolus after this cath. LABORATORIES: Show a white count 5, an H and H 9.6/29.3, platelets stable at 136,000 unchanged. Chemistry shows a sodium 140, potassium 4.7, BUN and creatinine stable at 33 and 1.33. Glucose somewhat elevated at 152. Troponins have actually trended downward. She is now almost in the indeterminate range. PLAN: 1. The patient has a high-grade LAD stenosis which does involve the principal diagonal. It appears the PRO is no longer patent. It is not clear whether this was patent after implant, this distal LAD is occluded. She has had some long-term complaints which were somewhat atypical which may been related to this stenosis. The other graft is patent to the PDA and to the distal circ is patent. The remainder of the circ does have moderate disease but no high-grade lesions. 2. I will need an application systems architect to discuss the ramifications of proceeding forward with a potential intervention. The lesion does appears somewhat calcified, but may be dilatable with standard means. However, given the presence of calcifications and side branch involvement, a drug-eluting stent would be the preferred stent. Originally the patient wanted a bare metal stent placed because of a potential concern for extraction of the tooth, however I do not think this would be prudent. Otherwise, she has no contraindications to taking Plavix and aspirin snf. 2. I spoke with one of the hospitalists because of her blood pressure being somewhat elevated. They are going to try to increased her metoprolol dose to get improved control. 3. She is on the catheterization schedule for Wednesday. We will prehydrate her in anticipation of another exposure to contrast. Should anything change in the interim, we will take her more acutely to the quality lab technician but she appears very stable, happy, and is watching TV today. CHANI
--- NOTE | 2016-12-19 18:31 | NUR ---
Post cath groin/metoprolol Right groin post heart cath puncture side- edges of bruising to the side were marked with black marker this morning - No changes were noted during the shift. Patient denied pain to the side on palpation or with movement. Addible through Doppler pedal and post tibia pulses to both lower extremity but right leg of lesser quality than the left- MD aware. Attending carbon cutter was able to assess right groin today and aware of appearance. Patient up to a chair for lunch with stand by assist and to the bathroom - patient tolerated the activity well- no changes to right groin were noted. Patient denied chest pain or shortness of breath at rest or with activity. MD ordered an additional dose of Metoprolol PO 50mg dose on top of already given 50mg Metoprolol PO. BP at 145/58 with heart rate of 61- consulted with MD- no additional Metoprolol was given this morning per MD order- patient/vital remained stable throughout the shift.
[2016-12-20] VITALS (9 sets, daily range): BP systolic 151–172; BP diastolic 6–68; PULSE 61–72; RESP 16–18; O2SAT 96–98
--- NOTE | 2016-12-20 06:38 | NUR ---
Cardiac: Right groin site stable overnight- bruising within outlines boarders, soft on palpation- no hematoma noted- distal pulses audible with Doppler. Tele SR 70s. pt denies any pain. care ongoing.
[2016-12-20] MEDS: Insulin LISPRO 300 Unit/3 mL Inj SUBQ SCH ×4 (08:00→21:06)
[2016-12-20] MEDS: Pantoprazole 40 mg ER24 Tablet PO SCH (09:19)
[2016-12-20] MEDS: Insulin GLARgine 100 Unit/mL Syringe SUBQ SCH (09:23)
--- NOTE | 2016-12-20 10:15 | NUR ---
Social Work: Continued Discharge Planning/Multidisciplinary Rounds D: EMR reviewed. Pt is on day 4 of hospitalization. Pt discussed in multidisciplinary rounds and will receive card cath tomorrow and anticipated to discharge home Wednesday. SW discussed potential discharge needs. No SW need identified, no MD orders received. SW will continue to follow. A: Pt who is independent at baseline. Pt who requests in-person [place] speaking meter changes records clerk. P: Pt anticipated to discharge home with family via POV Wednesday pending cardiology. No SW need identified, no MD orders received. SW will continue to follow. ANGEL Armijo
[2016-12-20] MEDS: 0.9% Sodium Chloride 1,000 ML IV SCH ×2 (15:12→23:38)
--- NOTE | 2016-12-20 15:58 | PROG NOTE ---
[address] [address] PROGRESS NOTE PATIENT: ALBERTO CHANDLER : 1935 MR#: [id number] ADMIT: 12/16/2016 JOB ID: [id number] DATE: 12/20/2016 CHIEF COMPLAINT: Patient has coronary disease causing anginal symptoms. SUBJECTIVE: She is doing fine today. Numbness of the face has decreased. Tooth pain is not an issue at this juncture. PHYSICAL EXAMINATION: Blood pressure 172/67. She is afebrile. Heart rate 72. Sats are 97% on room air. General: In no acute distress. Speaking in full sentences without apparent shortness of breath. Heart exam: Regular rate and rhythm. CURRENT MEDICATIONS: Include insulin, clindamycin, amlodipine, Plavix, aspirin, pantoprazole, atorvastatin. She was on lisinopril and I have held this for now and increased her metoprolol from 50 to 75 b.i.d. for blood pressure control and this is because her creatinine is just slightly up. Glucoses are also not optimal. Sodium 139, bicarb 104 and 19 respectively. Troponins have trended downward. IMPRESSION: The patient is doing well. I purposely only used about 130 cc contrast on her Wednesday cardiac catheterization because of renal insufficiency. She tells me that she is not eating and drinking as she does at home. PLAN: 1. We are going to hold lisinopril for now. 2. Increase metoprolol 75 b.i.d. for enhanced blood pressure control. 3. I am going to start on some IV fluids to see if this will improve her renal function so we can proceed as planned with cardiac catheterization in the morning. We cannot get a safety security officer this weekend so I will need the safety security officer at 8 a.m. on Wednesday morning to obtain informed consent from this patient. CHANI
--- NOTE | 2016-12-20 17:03 | PCM.PNMED ---
Subjective Date of Service Dec 20, 2016 Subjective Pt seen and evaluated at bedside. Denies recurrent chest pain over past 24 hours. Appetite in good. No other acute complaints. Exam Vital Signs Vital Sign - Last Date Time Temp Pulse Resp B/P Pulse Ox O2 Delivery O2 Flow Rate FiO2 12/20/16 16:17 36.5 68 18 152/58 96 Room Air Intake and Output 12/19/16 12/19/16 12/20/16 Cumulative From/Thru 15:00 23:00 07:00 12/16/16 20:11 - 12/20/16 04:17 Intake Total 950 ml 200 ml 2739 ml Output Total 650 ml 450 ml 5000 ml Balance 300 ml -250 ml -2261 ml Intake Oral 950 ml 200 ml 2418 ml IV Total 321 ml Output Urine Total 650 ml 450 ml 5000 ml # Voids 1 1 # Bowel Movements 1 3 General: Alert, Oriented X3, Cooperative, No Acute Distress Neck: Supple Chest & Lungs: Clear to auscultation & percussion Cardiovascular: Regular Rate/Rhythm Extremities: No cyanosis/clubbing/edma bilat Neurological: Grossly Neurologically Intact IVs and Medications Medications Reviewed: Medications were reviewed in detail Lab and Diagnostics Result Diagram: 12/19/16 0228 12/20/16 0158 X-Rays, CTs and MRIs PROCEDURE: MRA ANGIOGRAM HEAD WITHOUT CONTRAST ([id number]) INDICATIONS: FACIAL NUMBNESS IMPRESSION: 1. 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 2. Dominant left vertebral artery with mild stenosis. 3. 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 Dictated by: Areli Rubalcava M.D. on 12/17/2016 at 16:20 Approved by: Areli Rubalcava M.D. on 12/17/2016 at 16:27 PROCEDURE: MRI BRAIN WITHOUT CONTRAST ([id number]) INDICATIONS: FACIAL NUMBNESS IMPRESSION: 1. No acute intracranial abnormalities. 2. Cerebral volume loss and chronic microvascular ischemic changes. PROCEDURE: CT BRAIN WITHOUT CONTRAST ([id number]) INDICATIONS: facial droop on R IMPRESSION: 1. No acute intracranial disease process. 2. 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 Recommend nonemergent MRI pituitary protocol Chest X ray IMPRESSION: No acute cardiopulmonary disease process. Dictated by: Mercy Danielson MD, PhD on 12/16/2016 at 20:53 Approved by: Mercy Danielson MD, PhD on 12/16/2016 at 20:53 12-lead ECG ED read of EKG: Atrial premature complex. Left atrial enlargement. Probable LVH with secondary repol abnormality. ST depression in leads 1, v5 and v6, and there is about [address] elevation in leads aVR and V1 of uncertain significance. Cardiac Echo Impressions Echocardiogram May 2016 Left ventricular wall thickness is mildly increased. Left ventricular systolic function is normal without focal wall motion abnormalities. Ejection fraction is estimated to be 60-65%. Assessment diastolic parameters indicates a relaxation abnormality of the left ventricle, consistent with normal filling pressures. The right ventricle is normal in size and function. The left atrium is moderately dilated. Right atrium is normal in size. There is mild mitral regurgitation. There is no significant valvular heart disease. The aortic root is normal in size. No significant changes from August 2012. November 2016 Interpretation Summary 1. Normal left ventricular size with mild LVH and preserved LV systolic function with an estimated EF of 60-65% Possible mild hypokinesis of the distal anterolateral segment 2. Grossly normal right ventricular size with normal systolic function. 3. No evidence for significant valvular pathology Compared to the previous study, LV function is stable Assessment & Plan 81 year old female with h/o HTN, DM on insulin, and previous CT s/p 3 vessel CABG who presented to the ED on 12/16/16 complaints of facial numbness and neck pain who was initially admitted for observation and stroke protocol. # Acute NSTEMI, potentially present on admission, active - Repeat EKG shows ischemic changes in the anterolateral leads with inverted T waves - No longer on a Heparin drip - Positive Troponin but has trended down today - ECHO shows Normal left ventricular size with mild LVH and preserved LV systolic function with an estimated EF of 60-65%. Compared to the previous study , LV function is stable - Cardiology consulted. We continue appreciate their recommendations - Cardiac catheterization was performed on 12/18/2016 and showed that the patient has a high-grade LAD stenosis - She is on the catheterization schedule for Wednesday. # Tooth decay, present on admission, active - Continue Clindamycin 4 times a day - Florastor twice a day - Magic mouthwash when necessary pain - Followup as outpatient - There is a possibility perceived tooth pain may in fact be referred cardiac pain. Continue to assess. # Possible TIA, present on admission. Acute. resolved. - Pt no longer reports any symptoms of numbness on her left face - Noncon CT negative for acute processes but recommended MRI pituitary protocol for empty sella evaluation. 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 Wakler) who feels finding likely artifact - Further followup as outpatient # Hypertension, present on admission. Chronic. - Patient's blood pressure was over 200 systolic on admission, has since decreased - Continue home lisinopril 20 mg at night, metoprolol tartrate 50 mg twice a day now titrated to 75 po BID in repsonse to suboptimal BPs on recommendation from cardiology. - Continue close monitoring of pulse # Diabetes mellitus type II insulin using, present on admission. Chronic. - Glucose in the ER was 347 - HgA1C 9.9 - Continue glargine 10 units SQ AM - Low dose correctional scale ordered # Hyperlipidemia, present on admission. Chronic. - Lipid panel shows mild hypertriglyceridemia - Continue atorvastatin 40 mg at night # GERD, present on admission. Chronic. - Continue Omeprazole 20mg daily # CKD. - Cr seems at baseline. - Followup Pain Evaluation: Adequate Pain Control VTE Prophylaxis: Sub-Q Heparin (Unfractionated) VTE Mechanical Devices: Intermittant Pneumatic CD Resuscitation Status: CPR: Attempt Resuscitation Time spent 25 minutes Candelario Manzanares DO Dec 20, 2016 17:03
[2016-12-20] MEDS ORDERED: 0.9% Sodium Chloride 1,000 ML IV SCH ×2 (18:05→18:10)
--- NOTE | 2016-12-20 19:38 | NUR ---
Instrumentation Engineer/IV requesting per diem interpreter to be present at 0800 tomorrow, WednesdayDecember 21. Pt scheduled for label rewinder between 1009-[address] Mcknight. Pt left hand swollen after administrating NS @ 100 mL/hr, IV DC'd, applied 2 heat packs. IV continued in RAC. notified. New IV placed by IV Therapy in LFA. Pt tolerating RAC. Care continues.
[2016-12-21] VITALS (13 sets, daily range): BP systolic 124–192; BP diastolic 50–72; PULSE 59–79; RESP 14–22; O2SAT 95–99
[2016-12-21 02:38] LABS: Mean Corpuscular Hemoglobin 28.2 pg (27.0-35.0); Mean Corpuscular Volume 85.1 fL (81-100)
[2016-12-21 02:39] LABS: BASOPHILS % (AUTO) 0.4 % (0-3); EOSINOPHILS % (AUTO) 2.6 % (0-5); MONOCYTES % (AUTO) 8.8 % (4-12); NEUTROPHILS % (AUTO) 72.7 % (40-74); Platelet Count 134 bil/L (150-400)
[2016-12-21] MEDS ORDERED: Enalaprilat Inj 2.5 MG in Dextrose 5% 50 ML IV ONE (05:10)
[2016-12-21] MEDS: 0.9% Sodium Chloride 1,000 ML IV SCH ×3 (05:28→16:00)
[2016-12-21] MEDS: Pantoprazole 40 mg ER24 Tablet PO SCH (05:29)
[2016-12-21] MEDS ORDERED: 0.9% Sodium Chloride 1,000 ML IV SCH (06:00)
[2016-12-21] MEDS ORDERED: Labetalol 5 mg/mL 20 mL Inj IVPUSH ONE (06:00)
--- NOTE | 2016-12-21 06:20 | NUR ---
HTN P: This AM SBP >178mmhg, HR 60's NSR. I: given vasotec 0.625 mg IV E: post 80 mins, SBP >190's mmhg. I: given vasotec 2.5 mg slow IVP E: post 30 mins, SBP still > 190's mmhg. I: given labetalol 20mg slow IVP. No c/o chest pain or discomfort, NPO after midnight for heart cath today.
--- NOTE | 2016-12-21 07:24 | NUR ---
Neck Pain @0644 Pt c/o 11/02 neck pain(pressure), non-radiating, no sob, non-diaphoretic, Notified Dr. Elliott with new orders for 12 lead ekg and NTG. Given nitro 0.4mg SL Q5 mins x 3 doses. 0655 Relieved from pain after 3 nitro SL, BP 140's mmhg. HR 70's SR
[2016-12-21] MEDS: Insulin GLARgine 100 Unit/mL Syringe SUBQ SCH (10:09)
[2016-12-21] MEDS: Insulin LISPRO 300 Unit/3 mL Inj SUBQ SCH ×4 (10:12→21:07)
--- NOTE | 2016-12-21 10:24 | NUR ---
WAYNE: Patient on day 5 of admission and there is no WAYNE on chart. Will print and follow up with UR to see why no WAYNE done.' Updated [facility]
[2016-12-21 10:32] LABS: Unsaturated Iron Binding 164.3 ug/dL
[2016-12-21] MEDS: Darbepoetin Alfa 60 mCg/0.3 mL Inj SUBQ ONE ×2 (11:45→17:12)
[2016-12-21 12:55] LABS: Unsaturated Iron Binding 200.4 ug/dL
--- NOTE | 2016-12-21 13:30 | PROG NOTE ---
[address] [address] PROGRESS NOTE PATIENT: ALBERTO CHANDLER : 1935 MR#: [id number] ADMIT: 12/16/2016 JOB ID: [id number] DATE: 12/21/2016 CHIEF COMPLAINT: The patient came in with exertional tooth and chest pain symptoms. She has findings of a high-grade stenosis in the mid LAD. Her bypass graft to that vessel is occluded. She has had hypertension; also renal insufficiency and mild anemia likely related to renal insufficiency. Early this morning, she had some neck pain. Was very hypertensive at that time. She is currently doing fine. PHYSICAL EXAMINATION: Blood pressure is 145/65, heart rate is in the 70s. General: In no acute distress. Speaking in full sentences without pressured breath. Head and neck exam: Normocephalic, atraumatic. Heart exam: Regular rate and rhythm. Lungs clear. Abdomen soft. Extremities: Warm. CURRENT MEDICATIONS: She is on: 1. Insulin. 2. Amlodipine. 3. Plavix 75. 4. Aspirin 81 mg a day. 5. Atorvastatin 40 mg q.h.s. 6. We increased the metoprolol to 100 b.i.d. LABS: Show that her H and H is 9.1 and 27.5. This is likely reflective of the fact that we have hydrated her during her hospital admission. She came in with mild anemia. Platelets are about 134,000, which is stable. Chemistry shows an improving BUN and creatinine, 43 and 1.65. Iron is 36. TIBC is low. IMPRESSION: Many of her symptoms are likely related to coronary disease based upon her description. I spoke with an park interpreter at length with the patient. Her tooth pain primarily hurts when she walks and she has had some chest discomfort as well. PLAN: 1. I have also spoken with the renal service and they are going to give us a hand in terms of her mild anemia, see if she can get EPO injections. 2. They would like to help with the blood pressure management as well and that would be fine. 3. As long as her renal function looks stable or improved tomorrow we can proceed with plans for coronary intervention. I have discussed this at length with the patient in the presence of an park interpreter that if a stent were to be placed, a medicated stent would be the optimal choice to prevent restenoses. I also explained to her that it is important to take aspirin and Plavix every day without fail to avoid the stent closing down. All of her questions were answered. She agreed and consented to the procedure for tomorrow morning. We will keep her n.p.o. after midnight. Renal service will help with fluid management.
[2016-12-21] MEDS ORDERED: Darbepoetin Alfa 60 mCg/0.3 mL Inj SUBQ ONE (14:05)
--- NOTE | 2016-12-21 15:05 | NUR ---
Case Management: Formulation Chemist present. [facility] delivered and explained to pt. and family. Signed original placed in chart. Copy left at bedside. Justina Bañuelos RN
--- NOTE | 2016-12-21 16:15 | CONS ---
[address] [address] CONSULTATION REPORT PATIENT: ALBERTO CHANDLER : 1935 MR#: [id number] ADMIT: 12/16/2016 JOB ID: [id number] CORRECTED REPORT: DATE OF SERVICE: 12/21/2016 HISTORY: The patient is a very pleasant, 81-year-old, female who was admitted to [facility] on December 16, 2016, for facial paresthesias and neck pain. Since admission, she has developed acute kidney injury, and renal consultation is being sought for further evaluation of her acute kidney injury. She has a longstanding history of mild renal insufficiency secondary to longstanding diabetic renal disease and hypertension. She has been seen by an outside oracle soa architect in the past. Her diabetes is insulin-requiring and she has had this for a number of years. She is not compliant with her diet and her blood sugar is under fair control. She states her last eye exam was less than a year ago and she does not have a history of retinopathy or peripheral neuropathy. She also has a longstanding history of hypertension with hypertensive heart disease and hypertensive nephrosclerosis. She denies a history of any prior hematuria, proteinuria, recurrent urinary tract infections, renal lithiasis, or hepatitis. She denies a history of any prior rheumatoid arthritis or lupus. In reviewing her medications, I see that she is on a proton pump inhibitor, which is probably adding to some of her clinical situation. After admission, she had ruled out for a stroke and Cardiology was consulted who felt that her neck pain and paresthesia and jaw problems were most likely anginal. She was taken [facility] and was found to have several lesions which would require angioplasty with stent placement. Following her initial cardiac catheterization, she had an increase in her creatinine to a level of 1.79 from a baseline of 1.35. In reviewing the rest of her hospital records I see that her blood pressure has been consistently elevated with some significant fluctuations in her blood pressure readings. She has been given a number of p.r.n. medications with varying degrees of success. She denies any severe headache, visual problems, current chest pain, shortness of breath, or lower extremity edema. She is having some orthopnea but denies any PND. Furthermore, she denies any nausea, vomiting, constipation, diarrhea, fever, chills, or rashes. PAST MEDICAL HISTORY: Significant for insulin-requiring diabetes mellitus, hypertension with hypertensive heart disease and hypertensive nephrosclerosis, chronic kidney disease stage 3, GERD, and hyperlipidemia. There is no history of any prior stroke, seizure, asthma, thyroid illness, or malignancy. PAST SURGICAL HISTORY: Significant for a three-vessel coronary artery bypass graft in 2012. ALLERGIES: She is not allergic to any food or any medication. SOCIAL HISTORY: She denies use of alcohol, tobacco, or illicit drugs. She lives with her family and is normally able to provide for her basic needs. FAMILY HISTORY: Noncontributory. MEDICATIONS: At time of my evaluation include metoprolol, amlodipine, aspirin, atorvastatin, clindamycin, clopidogrel, insulin, Protonix, and a number of p.r.n. medications. PHYSICAL EXAMINATION: Revealed a mildly obese, well-developed, 81-year-old, female who was alert and oriented x3 and was able to assist me in the interview through an park interpreter. Her blood pressure was 160/61 with a heart rate of 79. HEENT examination is remarkable for pale sclerae. Corneas and conjunctivae were unremarkable. Pupils and extraocular muscles were also within normal limits. Neck was supple without adenopathy, thyromegaly, or jugular venous distention. Lungs are clear to auscultation though somewhat diminished in both bases due to body habitus. Heart was regular and rhythmical with a soft systolic murmur. Abdomen is soft, without any tenderness, rebound, guarding, masses or hepatosplenomegaly. Extremities do not show any evidence of any clubbing, cyanosis, or edema. Skin turgor is good and there is no evidence of any rashes. LABORATORY EXAMINATION: This morning, her hemoglobin is 9.1, hematocrit 27.5. Red cell indices, platelet count and differential were normal. Her sodium is 135, potassium 4.5, chloride 107, bicarbonate 19. BUN and creatinine were 43 and 1.65 respectively. Her iron saturation is low at 14%. I do not have a uric acid level on her. Her urinalysis is also pending. Her ejection fraction is normal. IMPRESSION: 1. Acute kidney injury secondary to contrast induced versus proton pump inhibitor which appears to be resolving. 2. Baseline chronic kidney disease stage 3. 3. Diabetic nephropathy. 4. Hypertension with hypertensive heart disease and hypertensive nephrosclerosis. 5. Anemia secondary to chronic kidney disease. 6. Metabolic acidosis. RECOMMENDATION: I will go ahead and give her a dose of Aranesp, and in light of her relatively low iron levels, I will go ahead and give her a dose of intravenous Venofer. I would also like to start her on some cautious IV hydration and get a renal ultrasound to look at her kidneys. Most likely, she should be able to undergo the procedure tomorrow without significant problems. I would recommend continuing her IV fluids for at least 12 hours post procedure. In addition, I would like to stop the metoprolol and start her on labetalol 200 mg twice a day along with chlorthalidone 25 mg once a day. I will continue to follow her and assist in her blood pressure management and anemia management. I would also strongly recommend upper and lower GI imaging studies, as she has never had this done in the past. This obviously could be done as an outpatient. Once again, I would like to thank you for allowing me to participate in the care of this most pleasant and interesting patient. I will be following her closely with you. Corrected by PARAS 01/04/17 at 12:14pm DOS
--- NOTE | 2016-12-21 16:42 | DRSVH ---
PROCEDURE: US RENAL SONOGRAM INDICATIONS: ckd TECHNIQUE: Real-time scanning was performed of the kidneys and bladder, with image documentation. COMPARISON: None. FINDINGS: Kidneys: Kidneys are normal in size. Right kidney measures 9.1 cm long; left kidney measures 8.5 cm long. Right renal cortical thickness is 1.0 cm; left renal cortical thickness is 1.1 cm. Renal cor tical echotexture is normal. No hydronephrosis or nephrolithiasis. No suspicious solid mass lesions . Bladder: Pre-void bladder volume is 59 mL. Post-void residual is 13 mL. Pre-void images demonstrat e no intraluminal masses or stones. On pre-void images, neither ureteral jets are noted with color D oppler interrogation. (Of note, ureteral jets may not be detectable in up to 25% of cases due to ins ufficient differences in specific gravity between ureteral and bladder urine). Miscellaneous: No free pelvic fluid. IMPRESSION: Grossly normal appearance the kidneys bilaterally. Dictated by: Pavel Shoemaker [facility] Interpreted: Manuel Moses MD on 12/21/2016 at 15:26 Approved by: Mark Moses M.D. on 12/21/2016 at 16:40
--- NOTE | 2016-12-21 17:05 | PCM.PNMED ---
Subjective Date of Service Dec 21, 2016 Subjective 81 year old female with h/o HTN, DM on insulin, and previous NC s/p 3 vessel CABG who presented to the ED on 12/16/16 complaints of facial numbness and neck pain who was initially admitted for observation and stroke protocol. Early in the morning, patient was complaining of neck pain that radiated to her shoulders bilaterally. Stat EKG showed NSR with HR in 70s. During that time, her blood pressure was found to be elevated. She was given labetolol IV. When I examined the patient this morning, she states that the neck pain has resolved. She denied chest pain and SOB. Overnight, her BP was high, requiring more blood pressure medications On review of systems, patient denies headaches, visual changes, chest pain, SOB , nausea, vomiting, abdominal pain, bowel changes and dysuria. Exam Vital Signs Vital Sign - Last Date Time Temp Pulse Resp B/P Pulse Ox O2 Delivery O2 Flow Rate FiO2 12/21/16 06:00 68 192/66 12/21/16 03:36 37.0 16 98 Room Air Intake and Output 12/20/16 12/20/16 12/21/16 Cumulative From/Thru 15:00 23:00 07:00 12/16/16 20:11 - 12/21/16 05:00 Intake Total 360 ml 823 ml 3922 ml Output Total 300 ml 5300 ml Balance 60 ml 823 ml -1378 ml Intake Oral 360 ml 2778 ml IV Total 823 ml 1144 ml Output Urine Total 300 ml 5300 ml # Voids 1 # Bowel Movements 1 4 Exam General: Patient is lying comfortably on bed, AAOX3, not in acute distress, cooperative and pleasant. HEENT: head normocephalic and atraumatic, PERRLA, EOMI, no scleral icterus, noninjected conjunctiva Neck: neck supple, non-tender, no lymphadenopathy, trachea midline, no JVD CV: regular rate and rhythm, s1 and s2 heard, no murmur, radial pulses only heard by doppler, no rubs murmurs or gallops, no edema Lungs: Clear to auscultation bilaterally, no wheezes, rales or rhonchi, no increased work of breathing Abdomen: normoactive bowel sounds on 4Q, soft, non-distended, non-tender to palpation, no organomegally, Skin: warm and dry Musculoskeletal: equal UE and LE strength bilaterally, full ROM bilaterally Extremities: Slightly tender to palpation of left foot, which she states is her baseline Neuro: Grossly neurologically intact, cranial nerves II through XII intact Psych: Normal mood and affect IVs and Medications Medications Reviewed: Medications were reviewed in detail Lab and Diagnostics Result Diagram: 12/21/16 02012/21/16 020 X-Rays, CTs and MRIs PROCEDURE: MRA ANGIOGRAM HEAD WITHOUT CONTRAST ([id number]) INDICATIONS: FACIAL NUMBNESS IMPRESSION: 1. 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 2. Dominant left vertebral artery with mild stenosis. 3. 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 Dictated by: Areli Rubalcava M.D. on 12/17/2016 at 16:20 Approved by: Areli Rubalcava M.D. on 12/17/2016 at 16:27 PROCEDURE: MRI BRAIN WITHOUT CONTRAST ([id number]) INDICATIONS: FACIAL NUMBNESS IMPRESSION: 1. No acute intracranial abnormalities. 2. Cerebral volume loss and chronic microvascular ischemic changes. PROCEDURE: CT BRAIN WITHOUT CONTRAST ([id number]) INDICATIONS: facial droop on R IMPRESSION: 1. No acute intracranial disease process. 2. 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 Recommend nonemergent MRI pituitary protocol Chest X ray IMPRESSION: No acute cardiopulmonary disease process. Dictated by: Mercy Danielson MD, PhD on 12/16/2016 at 20:53 Approved by: Mercy Danielson MD, PhD on 12/16/2016 at 20:53 12-lead ECG ED read of EKG: Atrial premature complex. Left atrial enlargement. Probable LVH with secondary repol abnormality. ST depression in leads 1, v5 and v6, and there is about [address] elevation in leads aVR and V1 of uncertain significance. Cardiac Echo Impressions Echocardiogram May 2016 Left ventricular wall thickness is mildly increased. Left ventricular systolic function is normal without focal wall motion abnormalities. Ejection fraction is estimated to be 60-65%. Assessment diastolic parameters indicates a relaxation abnormality of the left ventricle, consistent with normal filling pressures. The right ventricle is normal in size and function. The left atrium is moderately dilated. Right atrium is normal in size. There is mild mitral regurgitation. There is no significant valvular heart disease. The aortic root is normal in size. No significant changes from August 2012. November 2016 Interpretation Summary 1. Normal left ventricular size with mild LVH and preserved LV systolic function with an estimated EF of 60-65% Possible mild hypokinesis of the distal anterolateral segment 2. Grossly normal right ventricular size with normal systolic function. 3. No evidence for significant valvular pathology Compared to the previous study, LV function is stable Assessment & Plan 81 year old female with h/o HTN, DM on insulin, and previous NC s/p 3 vessel CABG who presented to the ED on 12/16/16 complaints of facial numbness and neck pain who was initially admitted for observation and stroke protocol. # Acute NSTEMI, potentially present on admission, active - Repeat EKG shows ischemic changes in the anterolateral leads with inverted T waves - No longer on a Heparin drip - Positive Troponin but has trended down today - ECHO shows Normal left ventricular size with mild LVH and preserved LV systolic function with an estimated EF of 60-65%. Compared to the previous study , LV function is stable - Cardiology consulted. We continue appreciate their recommendations - Cardiac catheterization was performed on 12/18/2016 and showed that the patient has a high-grade LAD stenosis - Keep patient npo at midnight. Hold MAGY inhibitors for KIRK. She is on the catheterization schedule for tomorrow # Tooth decay, present on admission, active - Continue Clindamycin 4 times a day - Florastor twice a day - Magic mouthwash when necessary pain - Followup as outpatient - There is a possibility perceived tooth pain may in fact be referred cardiac pain. Continue to assess. # Possible TIA, present on admission. Acute. resolved. - Pt no longer reports any symptoms of numbness on her left face - Noncon CT negative for acute processes but recommended MRI pituitary protocol for empty sella evaluation. - MRI stroke protocol negative - ST eval ordered - Monitor on telemetry - Continue Atorvastatin 40mg at night - Continue Aspirin 81mg daily #Acute on Chronic Renal Failure, resolving -likely secondary to contrast induced versus proton pump inhibitor -Patient has CKD stage 3 at baseline . -Nephrology was consulted. 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 Walker) who feels finding likely artifact - Further followup as outpatient # Hypertension, present on admission. Chronic. - Patient's blood pressure was over 200 systolic on admission, has since decreased - Continue home lisinopril 20 mg at night, metoprolol tartrate 50 mg twice a day now titrated to 100 po BID in repsonse to suboptimal BPs on recommendation from cardiology. - Continue close monitoring of pulse # Diabetes mellitus type II insulin using, present on admission. Chronic. - Glucose in the ER was 347 - HgA1C 9.9 - Continue glargine 10 units SQ AM - Low dose correctional scale ordered # Hyperlipidemia, present on admission. Chronic. - Lipid panel shows mild hypertriglyceridemia - Continue atorvastatin 40 mg at night # GERD, present on admission. Chronic. - Continue Omeprazole 20mg daily # CKD. - Cr seems at baseline. - Followup Pain Evaluation: Adequate Pain Control VTE Prophylaxis: Sub-Q Heparin (Unfractionated) VTE Mechanical Devices: Intermittant Pneumatic CD Resuscitation Status: CPR: Attempt Resuscitation Attending Statement The patient was seen and examined together with Dr. Lama on 12/21/2016 and I agree with the history, exam and plan as outlined in the note above. . Fozia Lama DO Dec 21, 2016 06:21 Reagan Flores MD Dec 24, 2016 07:50
--- NOTE | 2016-12-21 18:39 | NUR ---
AM insulin Pt originally was NPO for a procedure then the procedure was rescheduled for tomorrow morning. Blood sugar and Insulin given after the pt ate breakfast due being in another room and not knowing her breakfast came. Pt and family was reminded to call us when bringing food from outside or if a tray was delivered without being checked. Rechecked Blood glucose prior to lunch.
[2016-12-22] VITALS (41 sets, daily range): BP systolic 133–174; BP diastolic 44–117; PULSE 64–79; RESP 10–20; O2SAT 94–98
[2016-12-22] MEDS: 0.9% Sodium Chloride 1,000 ML IV SCH (02:07)
[2016-12-22 03:21] LABS: Mean Corpuscular Hemoglobin 27.9 pg (27.0-35.0); Mean Corpuscular Volume 85.4 fL (81-100)
[2016-12-22] MEDS: Pantoprazole 40 mg ER24 Tablet PO SCH (06:07)
--- NOTE | 2016-12-22 06:10 | NUR ---
Blood Pressure Vital signs stable throughout shift, no acute hypertension, neck pain, or chest discomfort. Pt reports ongoing facial numbness since beginning of hospital stay to L side. NPO after midnight. Tele SR 60s.
[2016-12-22] MEDS: Insulin GLARgine 100 Unit/mL Syringe SUBQ SCH (08:14)
[2016-12-22] MEDS: Insulin LISPRO 300 Unit/3 mL Inj SUBQ SCH ×4 (08:15→23:16)
[2016-12-22] MEDS ORDERED: 0.9% Sodium Chloride 250 ML IV ONE (09:10)
--- NOTE | 2016-12-22 10:00 | PCM.PNMED ---
Subjective Date of Service Dec 22, 2016 Subjective 81 year old female with h/o HTN, DM on insulin, and previous VT s/p 3 vessel CABG who presented to the ED on 12/16/16 complaints of facial numbness and neck pain who was initially admitted for observation and stroke protocol. This morning, patient denied chest pain, facial numbness and neck pain. She states that she feels well overall. Her blood pressures have been better controlled. However, her H&H dropped to 8.5/ 25.7 respectively. She is being transfused 2 units of blood and will undergo cardiac cath. On ROS, patient denies visual changes, headaches, chest pain, SOB, nausea, vomiting, abdominal pain, bowel changes and dysuria. Exam Vital Signs Vital Sign - Last Date Time Temp Pulse Resp B/P Pulse Ox O2 Delivery O2 Flow Rate FiO2 12/22/16 08:30 36.8 74 16 148/44 96 Room Air Intake and Output 12/21/16 12/21/16 12/22/16 Cumulative From/Thru 15:00 23:00 07:00 12/16/16 20:11 - 12/22/16 06:25 Intake Total 1431 ml 890 ml 6481 ml Output Total 1300 ml 600 ml 8600 ml Balance 131 ml 290 ml -2119 ml Intake Oral 400 ml 300 ml 3716 ml IV Total 1031 ml 590 ml 2765 ml Output Urine Total 1300 ml 600 ml 8600 ml # Voids 3 2 8 # Bowel Movements 1 1 6 Exam General: Patient is lying comfortably on bed, AAOX3, not in acute distress, cooperative and pleasant. HEENT: head normocephalic and atraumatic, PERRLA, EOMI, no scleral icterus, noninjected conjunctiva, pale conjunctiva Neck: neck supple, non-tender, no lymphadenopathy, trachea midline, no JVD CV: regular rate and rhythm, s1 and s2 heard, no murmur, no rubs murmurs or gallops, no edema Lungs: Clear to auscultation bilaterally, no wheezes, rales or rhonchi, no increased work of breathing Abdomen: normoactive bowel sounds on 4Q, soft, non-distended, non-tender to palpation, no organomegally, Skin: warm and dry Musculoskeletal: equal UE and LE strength bilaterally, full ROM bilaterally Extremities: Slightly tender to palpation of left foot, which she states is her baseline Neuro: Grossly neurologically intact, cranial nerves II through XII intact Psych: Normal mood and affect IVs and Medications Medications Reviewed: Medications were reviewed in detail Medications Patient will be receiving 2 untis PRBCS Lab and Diagnostics Result Diagram: 12/22/1622712/22/16227 X-Rays, CTs and MRIs PROCEDURE: MRA ANGIOGRAM HEAD WITHOUT CONTRAST ([id number]) INDICATIONS: FACIAL NUMBNESS IMPRESSION: 1. 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 2. Dominant left vertebral artery with mild stenosis. 3. 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 Dictated by: Areli Rubalcava M.D. on 12/17/2016 at 16:20 Approved by: Areli Rubalcava M.D. on 12/17/2016 at 16:27 PROCEDURE: MRI BRAIN WITHOUT CONTRAST ([id number]) INDICATIONS: FACIAL NUMBNESS IMPRESSION: 1. No acute intracranial abnormalities. 2. Cerebral volume loss and chronic microvascular ischemic changes. PROCEDURE: CT BRAIN WITHOUT CONTRAST ([id number]) INDICATIONS: facial droop on R IMPRESSION: 1. No acute intracranial disease process. 2. 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 Recommend nonemergent MRI pituitary protocol Chest X ray IMPRESSION: No acute cardiopulmonary disease process. Dictated by: Mercy Danielson MD, PhD on 12/16/2016 at 20:53 Approved by: Mercy Danielson MD, PhD on 12/16/2016 at 20:53 12-lead ECG ED read of EKG: Atrial premature complex. Left atrial enlargement. Probable LVH with secondary repol abnormality. ST depression in leads 1, v5 and v6, and there is about [address] elevation in leads aVR and V1 of uncertain significance. Cardiac Echo Impressions Echocardiogram May 2016 Left ventricular wall thickness is mildly increased. Left ventricular systolic function is normal without focal wall motion abnormalities. Ejection fraction is estimated to be 60-65%. Assessment diastolic parameters indicates a relaxation abnormality of the left ventricle, consistent with normal filling pressures. The right ventricle is normal in size and function. The left atrium is moderately dilated. Right atrium is normal in size. There is mild mitral regurgitation. There is no significant valvular heart disease. The aortic root is normal in size. No significant changes from August 2012. November 2016 Interpretation Summary 1. Normal left ventricular size with mild LVH and preserved LV systolic function with an estimated EF of 60-65% Possible mild hypokinesis of the distal anterolateral segment 2. Grossly normal right ventricular size with normal systolic function. 3. No evidence for significant valvular pathology Compared to the previous study, LV function is stable Assessment & Plan 81 year old female with h/o HTN, DM on insulin, and previous VT s/p 3 vessel CABG who presented to the ED on 12/16/16 complaints of facial numbness and neck pain who was initially admitted for observation and stroke protocol. # Acute NSTEMI, potentially present on admission, active - Repeat EKG shows ischemic changes in the anterolateral leads with inverted T waves - No longer on a Heparin drip - Positive Troponin but has trended down today - ECHO shows Normal left ventricular size with mild LVH and preserved LV systolic function with an estimated EF of 60-65%. Compared to the previous study , LV function is stable - Cardiology consulted. We continue to appreciate their recommendations - Cardiac catheterization was performed on 12/18/2016 and showed that the patient has a high-grade LAD stenosis -Hold MAGY inhibitors for KIRK. -Patient has been npo and will undergo cardiac cath today # Tooth decay, present on admission, active - Continue Clindamycin 4 times a day - Florastor twice a day - Magic mouthwash when necessary pain - Followup as outpatient - There is a possibility perceived tooth pain may in fact be referred cardiac pain. Continue to assess. # Possible TIA, present on admission. Acute. resolved. - Pt no longer reports any symptoms of numbness on her left face - Noncon CT negative for acute processes but recommended MRI pituitary protocol for empty sella evaluation, outpatient evaluation of this - MRI stroke protocol negative - Monitor on telemetry - Continue Atorvastatin 40mg at night - Continue Aspirin 81mg daily #Acute on Chronic Renal Failure, resolving -likely secondary to contrast induced versus proton pump inhibitor -Patient has CKD stage 3 at baseline . -Nephrology was consulted. 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 Walker) who feels finding likely artifact - Further followup as outpatient # Hypertensive emergency, present on admission, acute, resolved - Patient's blood pressure was over 200 systolic on admission, has since decreased - Stop home lisinopril 20 mg at night, metoprolol tartrate 50 mg twice a day was titrated to 100 po BID in repsonse to suboptimal BPs on recommendation from cardiology. These have been stopped -She was started on labetolol 200 bid and chlorthalidone 25 mg - Continue close monitoring of pulse # Diabetes mellitus type II insulin using, present on admission. Chronic. - Glucose in the ER was 347 - HgA1C 9.9, need tighter glucose control - Continue glargine 10 units SQ AM - We will start patient on high-dose correctional scale as well as 3 units Humalog before breakfast, lunch, and dinner # Hyperlipidemia, present on admission. Chronic. - Lipid panel shows mild hypertriglyceridemia - Continue atorvastatin 40 mg at night # GERD, present on admission. Chronic. - Continue Omeprazole 20mg daily # CKD. - Cr seems at baseline. - Followup Pain Evaluation: Adequate Pain Control VTE Prophylaxis: Sub-Q Heparin (Unfractionated) VTE Mechanical Devices: Intermittant Pneumatic CD Resuscitation Status: CPR: Attempt Resuscitation Attending Statement The patient was seen and examined together with Dr. Lama on 12/22/2016 and I agree with the history, exam and plan as outlined in the note above. . Fozia Lama DO Dec 22, 2016 10:00 Reagan Flores MD Dec 24, 2016 07:50
--- NOTE | 2016-12-22 12:18 | PCM.PNNEPH ---
Subjective Date of Service Dec 22, 2016 Subjective Patient is continuing to do well. She is scheduled for heart catheterization today and I have discussed the case length with cardiology. She denies any further chest pain, shortness of breath, and her blood pressures also considerably better. The last 24 hours she said 2492 and 2700 out. Renal ultrasound was unremarkable. Her sodium was 139, potassium 4.5, chloride 110, bicarbonate 17, BUN and creatinine were 36 and 1.57. Exam Vital Signs Vital Sign - Last Date Time Temp Pulse Resp B/P Pulse Ox O2 Delivery O2 Flow Rate FiO2 12/22/16 12:14 36.7 69 17 151/58 98 Room Air Intake and Output 12/21/16 12/21/16 12/22/16 Cumulative From/Thru 15:00 23:00 07:00 12/16/16 20:11 - 12/22/16 06:25 Intake Total 1431 ml 890 ml 6481 ml Output Total 1300 ml 600 ml 8600 ml Balance 131 ml 290 ml -2119 ml Intake Oral 400 ml 300 ml 3716 ml IV Total 1031 ml 590 ml 2765 ml Output Urine Total 1300 ml 600 ml 8600 ml # Voids 3 2 8 # Bowel Movements 1 1 6 Exam Lungs were clear to auscultation. Heart was regular and rhythmical with a soft systolic murmur. Abdomen is soft without any tenderness or rebound guarding masses or hepatosplenomegaly. Extremities show any evidence of any clubbing cyanosis or edema. Skin turgor is good. Lab and Diagnostics Result Diagram: 12/22/1622712/22/16227 X-Rays, CTs and MRIs PROCEDURE: MRA ANGIOGRAM HEAD WITHOUT CONTRAST ([id number]) INDICATIONS: FACIAL NUMBNESS IMPRESSION: 1. 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 2. Dominant left vertebral artery with mild stenosis. 3. 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 Dictated by: Areli Rubalcava M.D. on 12/17/2016 at 16:20 Approved by: Areli Rubalcava M.D. on 12/17/2016 at 16:27 PROCEDURE: MRI BRAIN WITHOUT CONTRAST ([id number]) INDICATIONS: FACIAL NUMBNESS IMPRESSION: 1. No acute intracranial abnormalities. 2. Cerebral volume loss and chronic microvascular ischemic changes. PROCEDURE: CT BRAIN WITHOUT CONTRAST ([id number]) INDICATIONS: facial droop on R IMPRESSION: 1. No acute intracranial disease process. 2. 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 Recommend nonemergent MRI pituitary protocol Chest X ray IMPRESSION: No acute cardiopulmonary disease process. Dictated by: Mercy Danielson MD, PhD on 12/16/2016 at 20:53 Approved by: Mercy Danielson MD, PhD on 12/16/2016 at 20:53 12-lead ECG ED read of EKG: Atrial premature complex. Left atrial enlargement. Probable LVH with secondary repol abnormality. ST depression in leads 1, v5 and v6, and there is about [address] elevation in leads aVR and V1 of uncertain significance. Cardiac Echo Impressions Echocardiogram May 2016 Left ventricular wall thickness is mildly increased. Left ventricular systolic function is normal without focal wall motion abnormalities. Ejection fraction is estimated to be 60-65%. Assessment diastolic parameters indicates a relaxation abnormality of the left ventricle, consistent with normal filling pressures. The right ventricle is normal in size and function. The left atrium is moderately dilated. Right atrium is normal in size. There is mild mitral regurgitation. There is no significant valvular heart disease. The aortic root is normal in size. No significant changes from August 2012. November 2016 Interpretation Summary 1. Normal left ventricular size with mild LVH and preserved LV systolic function with an estimated EF of 60-65% Possible mild hypokinesis of the distal anterolateral segment 2. Grossly normal right ventricular size with normal systolic function. 3. 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 Recommendations #1 I would like to continue her hydration for at least 12 hours after her procedure and recheck lab in the morning. Jung Kemp DO Dec 22, 2016 12:18
--- NOTE | 2016-12-22 13:04 | NUR ---
P: Pain I: Pt denies any pain or SOB. Up to bathroom with stand by assist. one of two units PRBC's infusing. Pt going to chemical lab technician this afternoon. BP stable. Afebrile. Saline lock patent without redness or swelling at the site. NPO for heart cath this afternoon. Voiding qs. Bmx1. Family at bedside. E: Stable S: Alert and oriented. Uses call light appropriately. Frequent rounding.
[2016-12-22] MEDS ORDERED: Glucose 40% Oral Gel 15 Gm Tube PO PRN (13:15)
[2016-12-22] MEDS ORDERED: Heparin 1,000 Units/500 mL NS Premix IV ONE (15:01)
[2016-12-22] MEDS ORDERED: Nitroglycerin 50,000 mcg/250 mL D5W Premix IV ONE (15:01)
[2016-12-22] MEDS ORDERED: Heparin 1,000 Unit/mL 10 mL Inj ONE (15:02)
[2016-12-22] MEDS ORDERED: Heparin 10,000 Unit/1,000 mL NS Premix IV ONE (15:02)
[2016-12-22] MEDS ORDERED: fentaNYL-PF 50 mCg/mL 2 mL Inj ONE (15:10)
--- NOTE | 2016-12-22 15:10 | NUR ---
P: Chest Pain I: Denies chest pain or SOB. 2nd unit PRBC's infusing and wharf labourer here to get pt. Report given to wharf labourer and report called to Corinne KUMARI. IV's patent without redness or swelling at the site. NPO. Cutter Operator Brick called to meet patient and family in wharf labourer to sign consent and answer any questions. Pt up to void before wharf labourer arrived. E: Stable S: Alert and oriented.
[2016-12-22] MEDS ORDERED: Abciximab Bolus 2 mg/mL 5 mL Inj ONE (16:15)
[2016-12-22] MEDS ORDERED: HYDROmorphone 1 mg/mL Inj ONE (17:49)
--- NOTE | 2016-12-22 17:58 | CS94 ---
[address] [address] DIAGNOSTIC CARDIAC CATHETERIZATION PATIENT: ALBERTO CHANDLER : 1935 MR#: [id number] ADMIT: 12/16/2016 JOB ID: [id number] SERVICE DATE: 12/22/2016 PROCEDURES PERFORMED: 1. Left [place] coronary angiography. 2. Intravascular ultrasound of the left anterior descending artery. 3. Stent placement to the mid left anterior descending. INDICATIONS: A 81-year-old woman who presented with anginal symptoms. She has findings of an occluded graft to the left anterior descending artery and a high-grade stenosis in the LAD that does involve the diagonal. She also has some ostial LAD disease as well. Does not appear to be flow-limiting. The patient also has renal insufficiency. He has anemia related to renal insufficiency and has received 2 units of blood. DESCRIPTION OF PROCEDURE: Informed consent was obtained. The patient was brought to the catheterization laboratory. Bilateral groins were prepped in the usual fashion. The area of the right femoral artery was anesthetized with lidocaine. Using modified Seldinger technique and a micropuncture kit, access was obtained and a 6-German sheath was advanced. Next, a 6-German CLS 3 guide was advanced over a wire and used to cannulate the left coronary artery and angiographic views obtained. Heparin was given for anticoagulation. A Prowater wire was advanced across the area of stenosis and advanced to the distal vessel. A whisper wire was advanced into the adjacent diagonal. A 2.5 x 12 mm balloon was advanced to the area of stenosis and inflated to nominal pressures. IVUS was advanced to assess the vessel. This showed that there was concentric calcification, and the vessel was no greater than 2.5 mm in the area of interest. Based upon this, a 2.5 x 15 mm Xience stent was advanced in the area of stenosis and this was inflated to 12 atmospheres. Follow-up angiographic views after stent placement reveal an excellent angiographic result with no significant stenosis and no evidence of dissection. The adjacent diagonal does have some pinching of the ostium but it has decent flow in it. Given some chest pain afterward and the flow in the diagonal, the patient was given a ReoPro bolus x1. HEMODYNAMICS: Aortic pressure 169/49, heart rate 76. MEDICATION GIVEN DURING THE CASE: Heparin for anticoagulation. Patient, as noted, has already been preloaded on Plavix. IMPRESSION: 1. Successful percutaneous intervention for a high-grade mid left anterior descending stenosis. 2. Successful intravascular ultrasound of the left anterior descending artery.
--- NOTE | 2016-12-22 19:15 | NUR ---
KENYETTA Patient to [facility] bed 2 at 1645 with right groin sheath in place. Ruling Technician at bedside. Small ooze at sheath site. no hematoma, bruising from previous heart cath. Pedal pulse present pr doppler. Patient sleeping. When awake patient C/O 10/10 tooth, jaw and shoulder pain. ECG 12 obtained and MD at bedside to evaluate patient. Dilaudid 1 mg given with immediate relief and patient sleeping. Sahni 16 F placed without problems. Sheath pulled at 1835 and manual pressure until 1900. Daughter at bedside. Patient taking sips water and icechips. Sleeping at this time.
--- NOTE | 2016-12-22 20:28 | NUR ---
KENYETTA No bleeding or hematoma at right groin site. Daughter at bedside. Small emesis, Light brown coffee colored. Dipped hemoglobin positive. MD notified. Transferred by bed to room 2012 at 2000. Report to receiving RN.
[2016-12-22] MEDS ORDERED: Nitroglycerin 50 mg/250 mL D5W 50,000 MCG in IV Premix 1 EACH IV SCH (21:00)
[2016-12-22] MEDS ORDERED: HYDROmorphone 0.5 mg/0.5 mL iSecure Syringe IVPUSH PRN (21:15)
[2016-12-22] MEDS: HYDROcodone-APAP 5-325 mg Tablet PO PRN (23:14)
[2016-12-23] VITALS (10 sets, daily range): BP systolic 123–154; BP diastolic 44–70; PULSE 62–78; RESP 12–18; O2SAT 97–99
--- NOTE | 2016-12-23 01:18 | NUR ---
P) S/P cath and transfer Alert pt., no neuro deficit's noted, S/P heart cath, R groin with lots of bruising from previous cath, dressing C/D/I, no hematoma, pedal pulses very weak bilat., BP high when vomiting or getting up on commode, cardiac rhythm sinus with no ectopy. Lungs CTA but decreased in bases . I) Checks and meds per 's orders, transfering to [facility], report given to MART Dickinson Addendum: 12/23/16 at 0125 by JOSE R REESE RN Of note, pt. vomited a small amount after getting to floor, and a large amount about 30 minutes after taking antibiotics.
[2016-12-23 03:55] LABS: BASOPHILS % (AUTO) 0.1 % (0-3); EOSINOPHILS % (AUTO) 0.1 % (0-5); MONOCYTES % (AUTO) 5.1 % (4-12); Mean Corpuscular Hemoglobin 28.5 pg (27.0-35.0); Mean Corpuscular Volume 84.4 fL (81-100); NEUTROPHILS % (AUTO) 89.7 % (40-74); Platelet Count 122 bil/L (150-400)
--- NOTE | 2016-12-23 04:52 | NUR ---
Transfer of care Patient has maintained stable vitals and denies pain. R. groin site soft with bruising at site from previous cath procedure. Will continue to monitor.
[2016-12-23] MEDS: Insulin LISPRO 300 Unit/3 mL Inj SUBQ SCH ×2 (08:00→12:02)
[2016-12-23] MEDS: HYDROcodone-APAP 5-325 mg Tablet PO PRN ×3 (08:28→15:30)
[2016-12-23] MEDS: Pantoprazole 40 mg ER24 Tablet PO SCH (08:29)
[2016-12-23] MEDS: Insulin GLARgine 100 Unit/mL Syringe SUBQ SCH (08:32)
[2016-12-23] MEDS: 0.9% Sodium Chloride 1,000 ML IV SCH (08:32)
--- NOTE | 2016-12-23 09:06 | PROG NOTE ---
[address] [address] PROGRESS NOTE PATIENT: ALBERTO CHANDLER : 1935 MR#: [id number] ADMIT: 12/16/2016 JOB ID: [id number] DATE: 12/23/2016 CHIEF COMPLAINT: The patient came in with tooth pain, neck pain, chest pain, abnormal EKG, abnormal cath, anemia likely related to renal insufficiency, hypertension. EVENTS: She was taken the track repair laborer yesterday after receiving 2 units of blood. She had a stent placed to the mid LAD. There is some proximal LAD disease but this does not appear to be flow limiting so the most highest grade stenosis was treated. After stenting the patient had some chest discomfort which eventually responded to pain meds and nitroglycerin. Today she is doing well. She says she feels well. She is eating breakfast. PHYSICAL EXAMINATION: Blood pressure 143/44, afebrile. Heart rate 65. Sats are 98% on 2 L. General: In no acute distress. Speaking in full sentences without apparent shortness of breath. Heart examination: Regular rate and rhythm. Lungs: Clear anteriorly. Groin site shows old hematoma. No new hematoma. CURRENT MEDICATIONS: Include: 1. Sodium chloride as directed. 2. Glargine insulin. 3. Aspirin 325. 4. Metronidazole 500 mg t.i.d. 5. Keflex 500 mg t.i.d. 6. Chlorthalidone 25 daily. 7. Plavix 75 daily. 8. Amlodipine 10 daily. 9. Lipitor 40 mg q.h.s. LABORATORY DATA: Show a white count 7 and H and H 11.7 and 34.6. Platelets 122,000, which is stable. Chemistry shows a sodium 141, potassium 4.7, chloride and bicarbonate 100 and 18, BUN and creatinine 28 and 1.28, improved from admission. Glucose 164. IMPRESSION: The patient is doing very well at this juncture. She has no more tooth pain, neck pain or chest pain. She had one stent to the LAD. This is a drug-eluting stent. Her hematocrit is much better. Her creatinine has also improved and she has no specific complaints today. PLAN: 1. We need to get together with the spanish medical interpreter and the family and make it clear that the patient needs to take aspirin and clopidogrel every day without fail for at least a year. 2. She will also be on her other blood pressure medications. 3. She should followup with Dr. Garza in approximately 2-3 weeks. 4. We may get her up and walk around the [place] and make sure she feels well. If she is doing well and there are no other concerns, it is possible she might be able to go home today with restrictions of no heavy lifting for the next 4-5 days. Again it is extremely important that we emphasize to this patient that she needs to take clopidogrel and aspirin every single day. Needs to get this filled and have it ready be taking starting tomorrow.
[2016-12-23] MEDS ORDERED: 0.9% Sodium Chloride 500 ML IV SCH (12:05)
--- NOTE | 2016-12-23 12:16 | PCM.PNNEPH ---
Subjective Date of Service Dec 23, 2016 Subjective s/p a stent placed to the mid LAD. Repeat serum creatinine showed cr of 1.28. feels bloated and gassy. Exam Vital Signs Vital Sign - Last Date Time Temp Pulse Resp B/P Pulse Ox O2 Delivery O2 Flow Rate FiO2 12/23/16 11:25 66 12/23/16 08:30 Supplement Oxygen 12/23/16 08:01 36.7 14 143/44 98 2.00 Intake and Output 12/22/16 12/22/16 12/23/16 Cumulative From/Thru 15:00 23:00 07:00 12/16/16 20:11 - 12/23/16 04:50 Intake Total 350 ml 610 ml 564 ml 8005 ml Output Total 1500 ml 59919 ml Balance 350 ml -890 ml 564 ml -2095 ml Intake Oral 0 ml 3716 ml IV Total 50 ml 310 ml 564 ml 3689 ml Packed Cells 300 ml 300 ml 600 ml Output Urine Total 1500 ml 47829 ml # Voids 8 # Bowel Movements 6 Exam GENERAL: The patient in no apparent distress, and alert and oriented x3. HEENT: Head is normocephalic and atraumatic. Extraocular muscles are intact. NECK: Supple, no elevation of JVD, No carotid bruits. No lymphadenopathy or thyromegaly. LUNGS: Clear to auscultation, equal breath sounds bilaterally, no wheezing, no rhonchi no rales. HEART: Normal S1/S2, Regular rate and rhythm, no murmurs, rubs or gallops. 2+ pules throughout. ABDOMEN: Soft, nontender, and nondistended. Positive bowel sounds. No hepatosplenomegaly was noted. EXTREMITIES: Without any cyanosis, clubbing, rash, lesions or edema. Lab and Diagnostics Result Diagram: 12/23/16 0330 12/23/16 0330 X-Rays, CTs and MRIs PROCEDURE: MRA ANGIOGRAM HEAD WITHOUT CONTRAST ([id number]) INDICATIONS: FACIAL NUMBNESS IMPRESSION: 1. 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 2. Dominant left vertebral artery with mild stenosis. 3. 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 Dictated by: Areli Rubalcava M.D. on 12/17/2016 at 16:20 Approved by: Areli Rubalcava M.D. on 12/17/2016 at 16:27 PROCEDURE: MRI BRAIN WITHOUT CONTRAST ([id number]) INDICATIONS: FACIAL NUMBNESS IMPRESSION: 1. No acute intracranial abnormalities. 2. Cerebral volume loss and chronic microvascular ischemic changes. PROCEDURE: CT BRAIN WITHOUT CONTRAST ([id number]) INDICATIONS: facial droop on R IMPRESSION: 1. No acute intracranial disease process. 2. 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 Recommend nonemergent MRI pituitary protocol Chest X ray IMPRESSION: No acute cardiopulmonary disease process. Dictated by: Mercy Danielson MD, PhD on 12/16/2016 at 20:53 Approved by: Mercy Danielson MD, PhD on 12/16/2016 at 20:53 12-lead ECG ED read of EKG: Atrial premature complex. Left atrial enlargement. Probable LVH with secondary repol abnormality. ST depression in leads 1, v5 and v6, and there is about [address] elevation in leads aVR and V1 of uncertain significance. Cardiac Echo Impressions Echocardiogram May 2016 Left ventricular wall thickness is mildly increased. Left ventricular systolic function is normal without focal wall motion abnormalities. Ejection fraction is estimated to be 60-65%. Assessment diastolic parameters indicates a relaxation abnormality of the left ventricle, consistent with normal filling pressures. The right ventricle is normal in size and function. The left atrium is moderately dilated. Right atrium is normal in size. There is mild mitral regurgitation. There is no significant valvular heart disease. The aortic root is normal in size. No significant changes from August 2012. November 2016 Interpretation Summary 1. Normal left ventricular size with mild LVH and preserved LV systolic function with an estimated EF of 60-65% Possible mild hypokinesis of the distal anterolateral segment 2. Grossly normal right ventricular size with normal systolic function. 3. No evidence for significant valvular pathology Compared to the previous study, LV function is stable Plan Impression 1. Acute kidney injury secondary to contrast induced nephropathy - improving 2. 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 3. Hypertension with hypertensive heart disease and hypertensive nephrosclerosis. 4. Anemia secondary to chronic kidney disease. 5. Metabolic acidosis. Plan: Continue IV NS 50 m/hr x 500 ml. Repeat BMP in am. Chavo Wiley MD Dec 23, 2016 12:16
--- NOTE | 2016-12-23 13:09 | PCM.DIMED ---
Fozia Lama DO 12/23/16 1308: Discharge Instructions Date of Service Dec 23, 2016 Dates of Hospitalization Dec 16, 2016 at 22:13 Discharge Diagnosis Discharge Diagnosis Acute non-ST segment elevation myocardial infarction status post cardiac catheterization with stent placement Tooth decay Acute on Chronic Renal Failure Anemia secondary to chronic kidney disease High grade stenosis in cavernous segment of the internal carotid arteries bilaterally noted on MRI Hypertensive emergency Possible TIA, resolved Diabetes Mellitus Type II Hyperlipidemia GERD Medication Instructions Additional med instructions It is very important that you take your Plavix and Aspirin daily. Es muy importante que usted tome estos medicamentos diariamente. Usted terri Plavix kayden un ao y aspirina para siempre. 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 Walker) who feels finding likely artifact. WE recommend follow-up with outpatient doctor for this Diet Discharge Diet: Diabetic (Please watch your sugar intake ) Activity Discharge Activity: Other (Please do not lift anything over 10 lbs for at least 4 days. Advance activity as tolerated. Por favor, no levante nada ms de 10 libras por lo menos 4 baker. Avanzar rosales actividad segn lo tolerado.) Call your provider Call your provider for: Fever or Chills, Shortness of breath, Bleeding, Chest pain, Vomitting, Excessive diarrhea, Weakness (unilateral) Patient Instructions Patient Instructions When you arrived in the hospital, your face felt numb and you were having neck pain. We did various tests and imaging to rule out a stroke. When we repeated your EKG, we found that there were changes. As a result, we consulted cardiology. They performed a cardiac catheterization on 12/18/16 that showed blockage on one of the arteries of your heart. We tried to get your blood pressure under control and tried to normalize your kidney function before cardiology could do another cardiac catheterization. We also gave you two units of blood because you anemia. Dr. Mcknight was able to do another cardiac catheterization on 12/22/17 and a stent was placed on one of the arteries of your heart known as the LAD. You did well after the procedure and you denied chest pain this morning. We are sending you home with Plavix (Clopidogrel) and Aspirin because you just had a stent placed. It is really important that you take these medications daily. You will take Plavix for a year and Aspirin forever. We also made changes to your blood pressure medications. Please take as indicated. You will follow-up with your rubber cutting machine tender Dr. Garza within a week and you will also follow-up with you primary care doctor, in 1- 2 weeks. We will send a summary to your doctors as well as give our recommendations. Cuando llegaste al hospital, tu mono se senta entumecido y tuviste dolor de familia. Hicimos varias pruebas e imgenes para descartar un derrame cerebral. Cuando repitimos rosales EKG, encontramos que haba cambios. Dean resultado, consultamos cardiologa. 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 Tratamos de controlar la presin arterial y tratamos de normalizar la funcin renal antes de que la cardiologa pudiera hacer otro cateterismo cardaco. Marilu te dieron dos unidades de ashvin porque tienes anemia. El Dr. Mcknight fue capaz de hacer otro cateterismo cardaco el 12/22/17 y se coloc un stent en carlos de las arterias de rosales corazn conocido dean LAD. Lo hiciste ajay despus del procedimiento y negaste dolor de pecho esta maana. Le estamos enviando a casa con Plavix (Clopidogrel) y Aspirina porque acaba de poner un stent. Es muy importante que usted tome estos medicamentos diariamente. Usted terri Plavix kayden un ao y aspirina para siempre. Mairlu hicimos cambios en prince medicamentos para la presin arterial. Por favor tome dean indicado. Usted seguir con rosales cardilogo Dr. Garza dentro de carlos semana y marilu saurabh el seguimiento con rosales mdico de atencin primaria, en 1-2 semanas. Le enviaremos un resumen a prince mdicos y le daremos nuestras recomendaciones. Follow-up plan You will follow-up with your rubber cutting machine tender Dr. Garza within a week and you will also follow-up with you primary care doctor, in 1-2 weeks. We will send a summary to your doctors as well as give our recommendations. Usted seguir con rosales cardilogo Dr. Garza dentro de carlos semana y tambin saurabh el seguimiento con rosales mdico de atencin primaria, en 1-2 semanas. Le enviaremos un resumen a prince mdicos y le daremos nuestras recomendaciones. Follow-up Provider: Gerardo Palacios MD Follow-up with PCP in: 2 weeks Provider: Fredrick Garza MD Follow-up in: 1 week Additional Information Patient will be discharged home with home health nursing for cardiac assessment and teaching, diabetic education, and medication management. Nursing will come out 3 times a week. Reagan Flores MD 12/24/16 0751: Discharge Instructions Attending's Statement The patient was seen and examined together with Dr. Lama next field 2016 on [Date] and I agree with the history, exam and plan as outlined in the note above. . Fozia Lama DO Dec 23, 2016 13:08 Reagan Flores MD Dec 24, 2016 07:51
[2016-12-23] MEDS ORDERED: HYG25 PO (15:33)
[2016-12-23] MEDS ORDERED: AMLO5TAB2 PO (15:33)
[2016-12-23] MEDS ORDERED: SACC250C PO (15:33)
[2016-12-23] MEDS ORDERED: CLOP75TA28 PO (15:33)
[2016-12-23] MEDS ORDERED: LABE200T PO (15:33)
--- NOTE | 2016-12-23 16:10 | NUR ---
Social Work: Discharge/Multidisciplinary Rounds D: Pt discussed in multidisciplinary rounds with provider. The patient is medically stable for discharge. [facility]ER met with the patient and her family at bedside to confirm discharge plan. Pt will be going home and lives with her family. They will be managing medications and getting her to follow up appointments. They are requesting a financial assistance/felice care application as the patient does not have a supplemental insurance. IRON MINER provided them with this along with the information for the [employer] ([employer] contact information. They state that the patient is on a very fixed income and are wondering if she qualifies for Medicaid. IRON MINER instructed them to go to the local [facility] office to request more information and assistance completing an applications. IRON MINER informed them that they can also do this online if they choose. They state that they understand this and will do these things. They are very concerned about the patients changing health status and compounding medical bills and co-pays. Other than questions about insurance they have no further questions or concerns. Appreciative of [facility] [facility] visit. No further d/c needs identified. A: Pt who has been ambulating I and participating in self care P: Pt to discharge home with additional care and support from her family. No other d/c needs. ANGEL Tejeda Addendum: 12/23/16 at 1735 by JARAD GLYNN Resident provider has updated ANGEL that she wishes for the patient to discharge home with HH for nursing care as the patient and family are expressing more questions about the patient's medication regime. F2F has been completed and CM order placed to arrange for HH RN. IRON MINER acknowledges order and IRON MINER met with the patient's family; they have no preference for HH companies. Referral made to [facility], per vendor calendar. IRON MINER spoke with Edmond Cruz with [facility] who states that due to the late hour, they will no be able to verify any information and/or formally accept. Based on the information IRON MINER provided to him about pt's insurance and her HH needs, he feels that they should be able to accommodate her. He will notify [facility]ER tomorrow if they are not able to accept her on caseload. F2F faxed to [phone]. Copy on chart and access provided.
--- NOTE | 2016-12-23 17:38 | PCM.DC.MED ---
Discharge Summary Date of Service Dec 23, 2016 Dates of Hospitalization Date of Hospital Admission Dec 16, 2016 at 22:13 Date of Discharge: Dec 23, 2016 Providers: Admitting Physician: Percy Ford MD Primary Care Physician: Gerardo Palacios MD Attending Physician: Reagan Flores MD Diagnosis at Time of Discharge Diagnosis at Time of Discharge Acute non-ST segment elevation myocardial infarction status post cardiac catheterization with stent placement, present on admission, resolved Tooth decay, present on admission, ongoing Acute on Chronic Renal Failure, present on admission, resolving Anemia secondary to chronic kidney disease, present on admission, resolving 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 2. Dominant left vertebral artery with mild stenosis. 3. 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 Dictated by: Areli Rubalcava M.D. on 12/17/2016 at 16:20 Approved by: Areli Rubalcava M.D. on 12/17/2016 at 16:27 PROCEDURE: MRI BRAIN WITHOUT CONTRAST ([id number]) INDICATIONS: FACIAL NUMBNESS IMPRESSION: 1. No acute intracranial abnormalities. 2. Cerebral volume loss and chronic microvascular ischemic changes. PROCEDURE: CT BRAIN WITHOUT CONTRAST ([id number]) INDICATIONS: facial droop on R IMPRESSION: 1. No acute intracranial disease process. 2. 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 Recommend nonemergent MRI pituitary protocol Chest X ray IMPRESSION: No acute cardiopulmonary disease process. Dictated by: Mercy Danielson MD, PhD on 12/16/2016 at 20:53 Approved by: Mercy Danielson MD, PhD on 12/16/2016 at 20:53 ECG 12 Lead ED read of EKG: Atrial premature complex. Left atrial enlargement. Probable LVH with secondary repol abnormality. ST depression in leads 1, v5 and v6, and there is about [address] elevation in leads aVR and V1 of uncertain significance. Cardiac Echo Impression Echocardiogram May 2016 Left ventricular wall thickness is mildly increased. Left ventricular systolic function is normal without focal wall motion abnormalities. Ejection fraction is estimated to be 60-65%. Assessment diastolic parameters indicates a relaxation abnormality of the left ventricle, consistent with normal filling pressures. The right ventricle is normal in size and function. The left atrium is moderately dilated. Right atrium is normal in size. There is mild mitral regurgitation. There is no significant valvular heart disease. The aortic root is normal in size. No significant changes from August 2012. November 2016 Interpretation Summary 1. Normal left ventricular size with mild LVH and preserved LV systolic function with an estimated EF of 60-65% Possible mild hypokinesis of the distal anterolateral segment 2. Grossly normal right ventricular size with normal systolic function. 3. No evidence for significant valvular pathology Compared to the previous study, LV function is stable Brief History Her H & P by Dr. Elliott on 12/16/16: Ms. Desir is a 81 year old female with h/o HTN, DM on insulin, and previous AK s /p 3 vessel CABG who presented to the ED on 12/16/16 with complaints of facial numbness and neck pain. She states she has had intermittent facial numbness since her diagnosis of diabetes but this neck pain is new in onset. She describes the neck pain as an acidic heartburn in her throat with some difficulty swallowing. Patient also attests to some epigastric/substernal pain on 12/12/16 that was relieved by nitro but has now returned and is similar in nature. She denies fevers, chills, night sweats, blurry vision, SOB, nausea, vomiting, unilateral weakness or slurring speech. Hospital Course 81 year old female with h/o HTN, DM on insulin, and previous AK s/p 3 vessel CABG who presented to the ED on 12/16/16 complaints of facial numbness and neck pain who was initially admitted for observation and stroke protocol. Noncontrast CT and MRI stroke protocol were negative for any acute process. Repeat EKG shows ischemic changes in the anterolateral leads with inverted T waves in troponins were positive. Cardiac catheterization was performed on 12/18 and showed that the patient has a high-grade LAD stenosis. Patient received IV fluid hydration because of worsening Acute on Chronic Renal Failure. Patient also received 2 units packed red blood cells because of her anemia secondary to chronic kidney disease. She was able to undergo another cardiac catheterization on 12/22/2016 and h. After stenting the patient had some chest discomfort which eventually responded to pain meds and nitroglycerin. Patient reports that she is doing well today. We will send her home with aspirin and Plavix as well as new blood pressure medications. Patient will be sent home with home health nursing for cardiac assessment, teaching, diabetic education and medication management. # Acute NSTEMI, potentially present on admission, resolved - Repeat EKG shows ischemic changes in the anterolateral leads with inverted T waves - No longer on a Heparin drip - Positive Troponin but has trended down today - ECHO shows Normal left ventricular size with mild LVH and preserved LV systolic function with an estimated EF of 60-65%. Compared to the previous study , LV function is stable - Cardiology consulted. We continue to appreciate their recommendations - Cardiac catheterization was performed on 12/18/2016 and showed that the patient has a high-grade LAD stenosis -Hold MAGY inhibitors for KIRK. -Patient underwent a cardiac catheterization on 12/22/2016 and had a stent placed to the mid LAD. Per cardiology, There is some proximal LAD disease but this does not appear to be flow limiting so the most highest grade stenosis was treated # Tooth decay, present on admission, active -Patient received Clindamycin 4 times a day, then transition to Keflex and metronidazole - Florastor twice a day - Magic mouthwash when necessary pain - Followup as outpatient - There is a possibility perceived tooth pain may in fact be referred cardiac pain. # Possible TIA, present on admission. Acute. resolved. - Pt no longer reports any symptoms of numbness on her left face - Noncon CT negative for acute processes but recommended MRI pituitary protocol for empty sella evaluation, outpatient evaluation of this - MRI stroke protocol negative - Monitor on telemetry - Continue Atorvastatin 40mg at night - Continue Aspirin 81mg daily #Acute on Chronic Renal Failure, resolving -likely secondary to contrast induced versus proton pump inhibitor -Patient has CKD stage 3 at baseline . -Nephrology was consulted. We appreciate their input -Per nephro, start IV fluid hydration and get renal US -Continued IV fluids 12 hrs post procedure #Anemia secondary to chronic kidney disease, present on admission, resolving -Consider outpatient Upper and Lower GI studies -Per Nephrology, Aranesp and Venofer -Patient received 2 units packed red blood cells -Follow up with primary care provider regarding this # High-grade stenosis in cavernous segment of the internal carotid arteries bilaterally noted on MRI, incidental finding - Discussed with neurology consult (Dr. Walker) who feels finding likely artifact - Further followup as outpatient # Hypertensive emergency, present on admission, acute, resolved - Patient's blood pressure was over 200 systolic on admission, has since decreased - Stop home lisinopril 20 mg at night, metoprolol tartrate 50 mg twice a day was titrated to 100 po BID in repsonse to suboptimal BPs on recommendation from cardiology. These have been stopped -She was started on labetolol 200 bid and chlorthalidone 25 mg, and amlodipine. We will send her home with this medication regimen - Continue close monitoring of puls # Diabetes mellitus type II insulin using, present on admission. Chronic. - Glucose in the ER was 347 - HgA1C 9.9, need tighter glucose control - Continue glargine 10 units SQ AM - We started patient on high-dose correctional scale as well as 3 units Humalog before breakfast, lunch, and dinner -We will resume home meds upon discharge. Please follow-up with outpatient primary care provider regarding better control of diabetes # Hyperlipidemia, present on admission. Chronic. - Lipid panel shows mild hypertriglyceridemia - Continue atorvastatin 40 mg at night # GERD, present on admission. Chronic. - Continue Omeprazole 20mg daily # CKD. - Cr seems at baseline. - Followup Exam Vital Signs (Last) Date Time Temp Pulse Resp B/P Pulse Ox O2 Delivery O2 Flow Rate FiO2 12/23/16 15:25 Room Air 12/23/16 12:39 36.6 65 16 137/66 98 12/23/16 11:42 2.00 Exam General: Patient is lying comfortably on bed, AAOX3, not in acute distress, cooperative and pleasant. HEENT: head normocephalic and atraumatic, PERRLA, EOMI, no scleral icterus, noninjected conjunctiva, pale conjunctiva Neck: neck supple, non-tender, no lymphadenopathy, trachea midline, no JVD CV: regular rate and rhythm, s1 and s2 heard, no murmur, no rubs murmurs or gallops, no edema Lungs: Clear to auscultation bilaterally, no wheezes, rales or rhonchi, no increased work of breathing Abdomen: normoactive bowel sounds on 4Q, soft, non-distended, non-tender to palpation, no organomegally, Skin: warm and dry, R groin with lots of bruising from previous cath Musculoskeletal: equal UE and LE strength bilaterally, full ROM bilaterally Extremities: No edema, range of motion intact bilaterally Neuro: Grossly neurologically intact, cranial nerves II through XII intact Psych: Normal mood and affect Test 12/16/16 00:01 12/16/16 20:36 12/16/16 22:25 12/17/16 05:30 Hemoglobin A1c 9.9% (4.8-5.6) Hold Purple Top Tube Received (Received) Hold Blue Top Tube Received (Received) Hold [place]ine Top Tube Received (Received) Hold Rodriguez Top Tube Received (Received) Hold Urine Received (Received) Triglycerides Level 191mg/dL (0-149) Cholesterol Level 129mg/dL (100-199) LDL Cholesterol, Calculated 56.800mg/dL (0-99) VLDL Cholesterol 38.200mg/dL HDL Cholesterol 34mg/dL (>39) Cholesterol/HDL Ratio 3.79 (0.0-4.4) Test 12/17/16 15:08 12/18/16 12:15 12/19/16 00:54 12/19/16 02:28 Thyroid Stimulating Hormone (TSH) 0.198uIU/mL (0.450-4.500) Free Thyroxine 3.75ng/dL (0.82-1.77) Activated Partial Thromboplast Time 70.3sec (22.8-33.0) Troponin T 0.040ug/L (0.0-0.011) Magnesium Level 2.1mg/dL (1.6-2.6) Test 12/21/16 12:10 12/22/16 02:28 12/23/16 03:30 Iron Level 33ug/dL (35-150) Total Iron Binding Capacity 233ug/dL (250-450) Percent Iron Saturation 14%sat (15-50) Unsaturated Iron Binding 200.4ug/dL Uric Acid 7.6mg/dL (2.6-7.2) White Blood Count 7.0th/mm3 (3.8-10.1) Red Blood Count 4.10mil/mm3 (3.90-5.20) Hemoglobin 11.7g/dL (12.0-15.6) Hematocrit 34.6% (35.0-46.0) Mean Corpuscular Volume 84.4fL (81-100) Mean Corpuscular Hemoglobin 28.5pg (27.0-35.0) Mean Corpuscular Hemoglobin Concent 33.8% (32.0-37.0) Red Cell Distribution Width 13.6% (12.3-15.4) Platelet Count 122bil/L (150-400) Neutrophils (%) (Auto) 89.7% (40-74) Lymphocytes (%) (Auto) 4.4% (14-46) Monocytes (%) (Auto) 5.1% (4-12) Eosinophils (%) (Auto) 0.1% (0-5) Basophils (%) (Auto) 0.1% (0-3) Sodium Level 141mEq/L (134-144) Potassium Level 4.7mEq/L (3.5-5.2) Chloride Level 110mEq/L (97-108) Carbon Dioxide Level 18mmol/L (18-29) Blood Urea Nitrogen 28mg/dL (8-27) Creatinine 1.28mg/dL (0.57-1.00) Estimat Glomerular Filtration Rate 58mL/min (>59) Glucose Level 164mg/dL (60-99) Calcium Level 8.4mg/dL (8.5-10.1) Total Bilirubin 0.5mg/dL (0.0-1.2) Aspartate Amino Transf (AST/SGOT) 33U/L (0-50) Alanine Aminotransferase (ALT/SGPT) 13U/L (0-32) Alkaline Phosphatase 89U/L (25-165) Total Protein 5.2g/dL (6.4-8.4) Albumin 2.8g/dL (3.4-5.0) Discharge Medications Discharge Medications Amlodipine (Amlodipine) 5 Mg Tablet 10 MG PO DAILY Prescribed by: Jennifer MAGALLANES Aspirin (Aspirin) 81 Mg Tablet 81 MG PO DAILY (Reported) Atorvastatin-Expunged Drug, Do Not Renew! (Atorvastatin-Expunged Drug, Do Not Renew!) 40 Mg Tablet 40 MG PO HS (Reported) Chlorthalidone (Chlorthalidone) 25 Mg Tablet 25 MG PO DAILY Prescribed by: Jennifer MAGALLANES Clopidogrel (Clopidogrel) 75 Mg Tablet 75 MG PO DAILY Prescribed by: Jennifer MAGALLANES INSULIN GLARGINE-Expunged Drug, Do Not Renew! (Lantus-Expunged Drug, Do Not Renew!) 100 Unit/1 Ml Cartridge 10 UNIT SQ AM (Reported) Labetalol (Labetalol) 200 Mg Tablet 200 MG PO BID Prescribed by: Jennifer MAGALLANES Omeprazole (Omeprazole) 20 Mg Capsule.dr 20 MG PO QAM (Reported) Saccharomyces Boulardii (Florastor) 250 Mg Capsule 250 MG PO BID Prescribed by: Jennifer MAGALLANES Additional med instructions It is very important that you take your Plavix and Aspirin daily. Es muy importante que usted tome estos medicamentos diariamente. Usted terri Plavix kayden un ao y aspirina para siempre. Followup Plan Disposition: Patient will be discharged home with home health nursing for cardiac assessment and teaching, diabetic education, and medication management. Nursing will come out 3 times a week. Follow-up plan You will follow-up with your typewriters functional tester Dr. Garza within a week and you will also follow-up with you primary care doctor, in 1-2 weeks. We will send a summary to your doctors as well as give our recommendations. Usted seguir con rosales cardilogo Dr. Garza dentro de carlos semana y tambin saurabh el seguimiento con rosales mdico de atencin primaria, en 1-2 semanas. Le enviaremos un resumen a prince mdicos y le daremos nuestras recomendaciones. Discharge Diet: Diabetic (Please watch your sugar intake ) Discharge Activity: Other (Please do not lift anything over 10 lbs for at least 4 days. Advance activity as tolerated. Por favor, no levante nada ms de 10 libras por lo menos 4 baker. Avanzar rosales actividad segn lo tolerado.) Patient Instructions When you arrived in the hospital, your face felt numb and you were having neck pain. We did various tests and imaging to rule out a stroke. When we repeated your EKG, we found that there were changes. As a result, we consulted cardiology. They performed a cardiac catheterization on 12/18/16 that showed blockage on one of the arteries of your heart. We tried to get your blood pressure under control and tried to normalize your kidney function before cardiology could do another cardiac catheterization. We also gave you two units of blood because you anemia. Dr. Mcknight was able to do another cardiac catheterization on 12/22/17 and a stent was placed on one of the arteries of your heart known as the LAD. You did well after the procedure and you denied chest pain this morning. We are sending you home with Plavix (Clopidogrel) and Aspirin because you just had a stent placed. It is really important that you take these medications daily. You will take Plavix for a year and Aspirin forever. We also made changes to your blood pressure medications. Please take as indicated. You will follow-up with your typewriters functional tester Dr. Garza within a week and you will also follow-up with you primary care doctor, in 1- 2 weeks. We will send a summary to your doctors as well as give our recommendations. Cuando llegaste al hospital, tu mono se senta entumecido y tuviste dolor de familia. Hicimos varias pruebas e imgenes para descartar un derrame cerebral. Cuando repitimos rosales EKG, encontramos que haba cambios. [place] resultado, consultamos cardiologa. 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 Tratamos de controlar la presin arterial y tratamos de normalizar la funcin renal antes de que la cardiologa pudiera hacer otro cateterismo cardaco. Tambin te dieron dos unidades de ashvin porque tienes anemia. El Dr. Mcknight fue capaz de hacer otro cateterismo cardaco el 12/22/17 y se coloc un stent en carlos de las arterias de rosales corazn conocido haylee LAD. Lo hiciste ajay despus del procedimiento y negaste dolor de pecho esta maana. Le estamos enviando a casa con Plavix (Clopidogrel) y Aspirina porque acaba de poner un stent. Es muy importante que usted tome estos medicamentos diariamente. Usted terri Plavix kayden un ao y aspirina para siempre. Tambin hicimos cambios en prince medicamentos para la presin arterial. Por favor tome haylee indicado. Usted seguir con rosales cardilogo Dr. Garza dentro de carlos semana y marilu saurabh el seguimiento con rosales mdico de atencin primaria, en 1-2 semanas. Le enviaremos un resumen a prince mdicos y le daremos nuestras recomendaciones. Follow-up Provider: Gerardo Palacios MD Follow-up with PCP in: 2 weeks Provider: Fredrick Garza MD Follow-up in: 1 week Time spent Greater than 30 minutes was spent in preparation of discharge with greater than 50% of that time dedicated to patient counseling and coordination of care. . Attending Statement The patient was seen and examined together with Dr. Lama on 12/23/2016 and I agree with the history, exam and plan as outlined in the note above. . copies to: Gerardo Palacios MD; Fredrick Garza MD, Alexa N DO Dec 23, 2016 17:38 Reagan Flores MD Dec 24, 2016 07:51
--- NOTE | 2016-12-23 17:49 | NUR ---
discharge Pt mo removed and pt voided with ease 1 hr after removal prior to DC. Bilat PIV's removed with ease. 1600 Discharge information, medications, and appointments read and explained line by line with hospital program director/music director. Pt and family had many questions and concerns. 1/[address] through discharge teaching pt vomited 500ml. Updated dr Lama on pt emesis and feeling overwhelmed, recommended a HHRN to review medications and check on pt. Dr Lama came and spoke with pt via sales and marketing analyst and HHRN was added. [id number] Pt escorted out via wheelchair.
--- NOTE | 2016-12-24 11:23 | NUR ---
Social Work: Post Discharge Note Population Health RN, Roxane, with case management states that she spoke with the patient's daughter, Geeta, who would like to make sure that she is added as a relays draftsperson for the patient's home health referral. As the patient speaks [place]vian, they are concerned that the patient will not get the services she needs if they are not able to help get an intake arranged. Her phone number is [phone]. t/c to Edmond Cruz with [facility]. He confirms that they have received the F2F and have all the necessary documentation needed. ANGEL informed him of the updated contact information for the patient's daughter and requested that they contact her to arrange the initial intake. He agrees and will have daughter as primary contact. ANGEL Tejeda
== END 2016-12-23 17:40 | disposition home health service (06) | DRG 247 ==
LOC: SED 20:07 → MPC 22:13 → OBSVTOIN 22:13 → MPC 22:36 → PCC 12-18 17:26 → CCU 12-22 20:12 → PCC 12-23 02:38
PROVIDERS: ADMIT Hospitalist; ATTEND Hospitalist
PROC: 4A023N7 Measurement of Cardiac Sampling and Pressure, Left Heart, Percutaneous Approach (ICD-10-PCS; principal; 2016-12-18)
PROC: B2111ZZ Fluoroscopy of Multiple Coronary Arteries using Low Osmolar Contrast (ICD-10-PCS; 2016-12-18)
PROC: B2121ZZ Fluoroscopy of Single Coronary Artery Bypass Graft using Low Osmolar Contrast (ICD-10-PCS; 2016-12-18)
PROC: 027044Z Dilation of Coronary Artery, One Artery with Drug-eluting Intraluminal Device, Percutaneous Endoscopic Approach (ICD-10-PCS; 2016-12-22)
PROC: 30233N1 Transfusion of Nonautologous Red Blood Cells into Peripheral Vein, Percutaneous Approach (ICD-10-PCS; 2016-12-22)
PROC: B240ZZ3 Ultrasonography of Single Coronary Artery, Intravascular (ICD-10-PCS; 2016-12-22)
DX: I21.4 Non-ST elevation (NSTEMI) myocardial infarction (principal); G45.9 Transient cerebral ischemic attack, unspecified; I16.1 Hypertensive emergency; E87.2 Acidosis; N17.9 Acute kidney failure, unspecified; I25.810 Atherosclerosis of coronary artery bypass graft(s) without angina pectoris; K02.9 Dental caries, unspecified; N18.3 Chronic kidney disease, stage 3 (moderate); E66.9 Obesity, unspecified; Z68.33 Body mass index [BMI] 33.0-33.9, adult; N14.1 Nephropathy induced by other drugs, medicaments and biological substances; T50.8X5A Adverse effect of diagnostic agents, initial encounter; I13.10 Hypertensive heart and chronic kidney disease without heart failure, with stage 1 through stage 4 chronic kidney disease, or unspecified chronic kidney disease; D63.1 Anemia in chronic kidney disease; E78.5 Hyperlipidemia, unspecified; K21.9 Gastro-esophageal reflux disease without esophagitis; Z79.4 Long term (current) use of insulin; E11.21 Type 2 diabetes mellitus with diabetic nephropathy; Z95.1 Presence of aortocoronary bypass graft